=== PATIENT | female | born 1970 | race Caucasian/White ===

== ENCOUNTER 2021-09-16 09:01 | Outpatient (CLI) | payer BC, SELFPAY ==
[2021-09-16 18:35] LABS: Hematocrit 41.3 % (37.0-47.0); Hemoglobin 13.4 g/dL (12.0-15.0); Mean Corpuscular HGB Conc 32.4 g/dl (32-36); Mean Corpuscular Hemoglobin 28.9 pg (26-34); Platelet Count Result 262 k/mm3 (150-375); Red Blood Count 4.64 M/mm3 (4.2-5.4); Red Cell Distribution Width 13.5 % (11.5-14.5); White Blood Count 6.6 K/mm3 (4.5-10.0)
[2021-09-16 19:08] LABS: Alanine Aminotransferase 21 U/L (4-35); Albumin Level 4.7 g/dL (3.5-5.1); Alkaline Phosphatase 113 U/L (38-126); Anion Gap 9 mmol/L (8-16); Aspartate Amino Transferase 30 U/L (14-36); Bilirubin,Total 0.5 mg/dL (0.2-1.3); Blood Urea Nitrogen 8 mg/dL (7-17); Calcium 9.5 mg/dL (8.4-10.2); Carbon Dioxide 21 mmol/L (22-30); Chloride 107 mmol/L (98-107); Cholesterol 141 mg/dL (0-200); Estimated Glomerular Filt Rate > 60; Glucose 101 mg/dL (65-110); HDL Direct 45 mg/dL; Sodium 137 mmol/L (137-145); Triglycerides 118 mg/dL (<150)
[2021-09-16 19:19] LABS: LDL Cholesterol Direct 68 mg/dL
[2021-09-16 19:25] LABS: Vitamin D 25 Hydroxy 28.5 ng/mL
[2021-09-16 19:39] LABS: Thyroid Stimulating Hormone Reflex 0.752 uIU/mL (0.465-4.68)
[2021-09-21 07:35] LABS: LH 30.9 mIU/mL (***); Progesterone 0.4 ng/mL (***)
[2021-09-21 13:06] LABS: Testosterone Free 1.9 pg/mL (0.1-6.4); Testosterone Total 22 ng/dL (2-45)
== END 2021-09-16 09:02 | disposition home or self-care (01) ==
LOC: ANHBWCLAB 09:06
PROVIDERS: PCP Family Medicine; Visit Provider Family Medicine
DX: R68.82 Decreased libido (principal); E04.9 Nontoxic goiter, unspecified; K21.9 Gastro-esophageal reflux disease without esophagitis; Z98.84 Bariatric surgery status; Z00.00 Encounter for general adult medical examination without abnormal findings
CPT/HCPCS: 36415; 80053; 80061; 82306; 82607; 82672; 82746; 83001; 83002; 84144; 84402; 84403; 84443; 85027

== ENCOUNTER → 2021-10-07 08:27 | Outpatient (CLI) | payer OTHER, SELFPAY ==
--- NOTE | ~2021-10-07 | CT_ITS ---
EXAMINATION: CT brain wo con DATE: 10/07/2021 08:44 INDICATION: Headache TECHNIQUE: Computed tomography (CT) of the head was performed without intravenous contrast. Sagittal and coronal reconstructions were performed. The mA was adjusted according to patient size. Iterative reconstruction technique was employed. The dose-length product was 599.57 mGy-cm. COMPARISON: None FINDINGS: No acute intracranial hemorrhage, acute infarction or abnormal extra axial fluid collection. Ventricl es are normal and symmetric. Empty sella with flattened pituitary measuring 2 mm in craniocaudal th ickness along the floor of the dilated CSF sella which measures 1.6 x 1.6 cm in diameter. No mass/mas s effect. The orbits, paranasal sinuses and mastoid air cells are normal. IMPRESSION: 1. No acute intracranial process. 2. Empty sella which can be associated with idiopathic intracranial hypertension. Reviewed, dictated and finalized at location B. IO OPERATIONS ENGINEER IN CHARGE IMPRESSION: 1. No acute intracranial process. 2. Empty sella which can be associated with idiopathic intracranial hypertens ion.
== END ==
PROVIDERS: PCP Family Medicine; Visit Provider Family Medicine
DX: R51.9 Headache, unspecified (principal)
CPT/HCPCS: 70450

== ENCOUNTER 2022-09-20 07:35 | Outpatient (CLI) | payer OTHER, SELFPAY ==
[2022-09-20 19:10] LABS: Hematocrit 41.4 % (37.0-47.0); Hemoglobin 13.3 g/dL (12.0-15.0); Mean Corpuscular HGB Conc 32.1 g/dl (32-36); Mean Corpuscular Hemoglobin 28.8 pg (26-34); Mean Corpuscular Volume 89.6 fl (80-100); Mean Platelet Volume 11.4 fl (7.4-10.4); Platelet Count Result 246 k/mm3 (150-375); Red Blood Count 4.62 M/mm3 (4.2-5.4); Red Cell Distribution Width 13.3 % (11.5-14.5); White Blood Count 6.5 K/mm3 (4.5-10.0)
[2022-09-20 19:24] LABS: Hemoglobin A1C 6.2 % (<5.7)
[2022-09-20 19:28] LABS: Alanine Aminotransferase 30 U/L (6-35); Albumin Level 4.8 g/dL (3.5-5.1); Alkaline Phosphatase 121 U/L (38-126); Anion Gap 9 mmol/L (8-16); Aspartate Amino Transferase 56 U/L (14-36); Bilirubin,Total 0.5 mg/dL (0.2-1.3); Blood Urea Nitrogen 9 mg/dL (7-17); Calcium 9.1 mg/dL (8.4-10.2); Carbon Dioxide 24 mmol/L (22-30); Chloride 107 mmol/L (98-107); Cholesterol 183 mg/dL (0-200); Estimated Glomerular Filt Rate > 60; Glucose 91 mg/dL (65-110); HDL Direct 47 mg/dL; Sodium 140 mmol/L (137-145); Triglycerides 153 mg/dL (<150)
[2022-09-20 19:29] LABS: Vitamin D 25 Hydroxy 30.6 ng/mL
[2022-09-20 19:40] LABS: LDL Cholesterol Direct 87 mg/dL
== END 2022-09-20 07:36 | disposition home or self-care (01) ==
PROVIDERS: PCP Family Medicine; Visit Provider Family Medicine
DX: E55.9 Vitamin D deficiency, unspecified (principal); G43.909 Migraine, unspecified, not intractable, without status migrainosus; F41.9 Anxiety disorder, unspecified; B00.1 Herpesviral vesicular dermatitis; E23.6 Other disorders of pituitary gland; H53.8 Other visual disturbances; F52.6 Dyspareunia not due to a substance or known physiological condition; R68.82 Decreased libido; E04.9 Nontoxic goiter, unspecified; Z98.84 Bariatric surgery status; R73.09 Other abnormal glucose
CPT/HCPCS: 36415; 80053; 80061; 82306; 82607; 83036; 85027

== ENCOUNTER 2022-10-03 13:30 | Emergency (ER) | payer OTHER, SELFPAY ==
--- NOTE | ~2022-10-03 | XR_ITS ---
EXAMINATION: XR chest 2V DATE: 10/03/2022 13:48 INDICATION: Shortness of breath. Cough. TECHNIQUE: Frontal and lateral views of the chest were obtained. COMPARISON: None. FINDINGS: There is no pneumonia, pleural effusion, or pneumothorax. The heart size is normal. Surgica l clips in the right upper quadrant are likely from cholecystectomy. IMPRESSION: 1. No acute cardiopulmonary disease. Reviewed, dictated and finalized at location A. [facility]
[2022-10-03 13:32] VITALS: BP 121/87; PULSE 111; RESP 22; TEMP 36.2; O2SAT 99
[2022-10-03 14:38] LABS: Influenza A QL RT-PCR Negative (Negative); Influenza B QL RT-PCR Negative (Negative); SARS-CoV-2 RNA PCR Negative
--- NOTE | 2022-10-03 14:41 | ED.URI ---
HPI - URI/Sore Throat General Chief Complaint: Upper Respiratory Infection Stated Complaint: upper resp infection Time Seen by Provider: 10/03/22 13:48 History of Present Illness HPI Narrative: 52-year-old female presents to the emergency room for gradual onset of a productive cough, headache, shortness of breath and difficulty breathing. Patient has been taking Mucinex DM and Tylenol with little relief of symptoms. Denies fever. Patient states that she is experiencing difficulty taking a deep satisfying breath. No history of asthma or COPD. Does not smoke. Patient also endorses right ear pain. Related Data Allergies Allergy/AdvReac Type Severity Reaction Status Date / Time dill oil Allergy Unknown Verified 09/20/22 07:17 Review of Systems Review of Systems: CONSTITUTIONAL: Denies fever, chills, or sweats. EYES: Denies visual changes, redness, or discharge. ENT: Reports sinus congestion CARDIOVASCULAR: Denies chest pain, palpitations, or edema. RESPIRATORY: Reports cough or dyspnea. GASTROINTESTINAL: Denies abdominal pain, nausea, vomiting, or diarrhea. GENITOURINARY: Denies dysuria or hematuria. SKIN: Denies rash or itching. MUSCULOSKELETAL: Denies back pain, joint pain, or myalgia. NEUROLOGIC: Denies headache, numbness, dizziness, or weakness. PSYCHIATRIC: Denies anxiety or depression. [facility] Past Medical History Medical History (Updated 10/03/22 @ 16:07 by Efrain Mcguire APRN) GERD (gastroesophageal reflux disease) Goiter Surgical History Surgical History (System 12/09/21 @ 16:12 by Laura Montes) H/O gastric bypass H/O tubal ligation H/O: hysterectomy History of cholecystectomy Family History Family History Father Alcohol abuse Asthma Diabetes mellitus Hypertension Mother Diabetes mellitus Hypertension Other Thyroid disorder Grandparent Hypertension Cerebrovascular accident Grandparent Alcohol abuse Hypertension Heart problem Social History Social History (Updated 09/20/22 @ 07:19 by Paloma Hanks MA) Smoking packs per day: 1.5 Smoking cigarettes per day: 30.0 Years smoked: 24 Smoking pack-years: 36.00 Smoking status: Former smoker Alcohol intake: current Substance use: never Lack of Transportation: No Lack of Food: Never True Current Housing: I Have Housing Concerned About Future Housing: No Difficulty Paying Gas/Electric Bills: No Difficulty Paying for Meds: No Currently Unemployed: No Education: Associate Degree Difficulty w/ Childcare or Family Care: No Exam Narrative: GENERAL: Ill-appearing, well-nourished, no physical limitations HEAD: Normocephalic, atraumatic. EYES: Conjunctivae normal, PERRLA and EOMI. ENT: External nose normal, Nares clear, no rhinorrhea or epistaxis. Mucous membranes moist. Oropharynx without tonsillar hypertrophy exudate or other lesions. External ears normal, bilateral TMs normal bilaterally. Clear effusion with bulging right TM NECK: Supple. No adenopathy or masses. CHEST: Clear to auscultation. No respiratory distress. No wheezes rales or rhonchi. HEART: Regular rate and rhythm. No murmur heard. Normal peripheral pulses. EXTREMITIES: Normal range of motion. No edema. No clubbing or cyanosis SKIN: Warm, dry, no rash. No noted wounds NEURO: No focal deficits. Alert and oriented x3. MAEW. CN's II-XI intact bilaterally, normal gait PSYCH: Cooperative. Normal mood and affect. Course Vital Signs Vital signs: Vital Signs Temperature 36.2 C L 10/03/22 13:32 Pulse Rate 111 H 10/03/22 13:32 Respiratory Rate 22 H 10/03/22 13:32 Blood Pressure 121/87 10/03/22 13:32 Pulse Oximetry 99 10/03/22 13:32 Oxygen Delivery Room Air 10/03/22 13:32 Temperature 36.2 C L 10/03/22 13:32 Pulse Rate 111 H 10/03/22 13:32 Respiratory Rate 20 10/03/22 15:32 Blood Pressure 121/87 10/03/22 13:32 Pulse Oximetry 99 10/03/22 13:
[2022-10-03 15:18] VITALS: RESP 20
[2022-10-03] MEDS: IPRATROPIUM BR 0.02% INH SOLN 0.5 MG/2.5 ML VIAL INHALATION (15:18)
[2022-10-03] MEDS: ALBUTEROL SULFATE NEB 2.5 MG/3 ML INH INHALATION (15:18)
[2022-10-03 15:32] VITALS: RESP 20
== END 2022-10-03 16:10 | disposition home or self-care (01) ==
PROVIDERS: Emergency Provider Nurse Practitioner Family; PCP Family Medicine
DX: J06.9 Acute upper respiratory infection, unspecified (principal); Z20.822 Contact with and (suspected) exposure to COVID-19; K21.9 Gastro-esophageal reflux disease without esophagitis; Z95.1 Presence of aortocoronary bypass graft; Z90.710 Acquired absence of both cervix and uterus; Z87.891 Personal history of nicotine dependence; Z79.85 Long-term (current) use of injectable non-insulin antidiabetic drugs
CPT/HCPCS: 71046; 87636; 94640; 96372; 99283; J1100

== ENCOUNTER 2022-11-30 16:29 | Emergency (ER) | payer OTHER, SELFPAY ==
[2022-11-30 16:43] VITALS: BP 156/95; PULSE 85; RESP 20; TEMP 36.8; O2SAT 100
--- NOTE | 2022-11-30 17:10 | ED.LOWEXIN ---
HPI - Extremity Injury (Lower) General Chief Complaint: Extremity Injury, Lower Stated Complaint: Low Back Pain Source: patient and RN notes reviewed History of Present Illness HPI Narrative: 52-year-old female presents to urgent care with complaints of right buttock pain that radiates around to right groin. Patient states this has been going on for the last week. Patient states she has been sleeping in a recliner ever since this past winter but when she slept in a bed recently her pain was aggravated. Patient denies any numbness or tingling. Denies any saddle anesthesia, incontinence of urine or stool, fevers, or chills. Patient has taken ibuprofen with minimal relief. Some parts of this dictation were generated by voice recognition software and may contain typographical and/or grammatical inaccuracies. Related Data Allergies Allergy/AdvReac Type Severity Reaction Status Date / Time dill oil Allergy Unknown Verified 09/20/22 07:17 Review of Systems Review of Systems: CONSTITUTIONAL: Denies fever, chills, or sweats. EYES: Denies visual changes, redness, or discharge. ENT: Denies otalgia and sore throat CARDIOVASCULAR: Denies chest pain, palpitations, or edema. RESPIRATORY: Denies cough or dyspnea. GASTROINTESTINAL: Denies abdominal pain, nausea, vomiting, or diarrhea. GENITOURINARY: Denies dysuria or hematuria. SKIN: Denies rash or itching. MUSCULOSKELETAL: Right buttock pain that radiates to right groin NEUROLOGIC: Denies headache, numbness, or weakness. [facility] Past Medical History Medical History (Updated 11/30/22 @ 17:35 by Leah Arzola APRN) GERD (gastroesophageal reflux disease) Goiter Surgical History Surgical History (System 12/09/21 @ 16:12 by Laura Montes) H/O gastric bypass H/O tubal ligation H/O: hysterectomy History of cholecystectomy Family History Family History Father Alcohol abuse Asthma Diabetes mellitus Hypertension Mother Diabetes mellitus Hypertension Other Thyroid disorder Grandparent Hypertension Cerebrovascular accident Grandparent Alcohol abuse Hypertension Heart problem Social History Social History (Updated 09/20/22 @ 07:19 by Paloma Hanks MA) Smoking packs per day: 1.5 Smoking cigarettes per day: 30.0 Years smoked: 24 Smoking pack-years: 36.00 Smoking status: Former smoker Alcohol intake: current Substance use: never Lack of Transportation: No Lack of Food: Never True Current Housing: I Have Housing Concerned About Future Housing: No Difficulty Paying Gas/Electric Bills: No Difficulty Paying for Meds: No Currently Unemployed: No Education: Associate Degree Difficulty w/ Childcare or Family Care: No Living arrangements: with family Comments At the time of my signature, I reviewed and agree with the nursing past medical, surgical, social, and family history. There is no relevant family history pertinent to the patient complaint. Exam Narrative: GENERAL: This is a well-nourished, well-developed patient, in no apparent distress. HEAD: normocephalic, atraumatic. EYES: PERRL. Sclera clear/white. Vision is grossly intact. EARS: External ears normal, auditory canals clear and without drainage, TMs normal without perforation. Hearing grossly intact. NOSE: External nose normal with no obvious nasal discharge, nares without redness, no rhinorrhea. THROAT: Mucous membranes moist, posterior pharynx clear. NECK: Neck supple, non-tender without lymphadenopathy, masses or thyromegaly. CARDIOVASCULAR: Regular rate and rhythm without murmurs, gallops, or rubs. RESPIRATORY: Clear to auscultation. Breath sounds equal bilaterally. No wheezes, rales, or rhonchi. GASTROINTESTINAL: Abdomen soft, non-tender, nondistended. Bowel sounds are active. No hepato-splenomegaly, or palpable masses. No guarding. SKIN: warm, intact with no suspicious lesions or rash, good texture and t
== END 2022-11-30 17:40 | disposition home or self-care (01) ==
PROVIDERS: Emergency Provider Nurse Practitioner Family; PCP Family Medicine
DX: M54.31 Sciatica, right side (principal); Z98.84 Bariatric surgery status; Z87.891 Personal history of nicotine dependence; Z79.51 Long term (current) use of inhaled steroids
CPT/HCPCS: 99213; G0463

== ENCOUNTER 2022-12-06 13:59 | Outpatient (CLI) | payer OTHER, SELFPAY ==
[2022-12-06 20:58] LABS: Hepatitis B Surface Antigen Negative (Negative)
[2022-12-06 21:04] LABS: HAV RESULT Negative (Negative); Hepatitis B Core IgM Result Negative (Negative)
[2022-12-06 21:16] LABS: Hepatitis C Virus Antibody Negative (Negative)
[2022-12-06 21:30] LABS: Alanine Aminotransferase 35 U/L (6-35); Albumin Level 4.5 g/dL (3.5-5.1); Alkaline Phosphatase 106 U/L (38-126); Aspartate Amino Transferase 57 U/L (14-36); Bilirubin,Total 0.3 mg/dL (0.2-1.3)
== END 2022-12-06 14:00 | disposition home or self-care (01) ==
LOC: ANHBWCLAB 14:00
PROVIDERS: PCP Family Medicine; Visit Provider Family Medicine
DX: R74.01 Elevation of levels of liver transaminase levels (principal)
CPT/HCPCS: 36415; 80074; 80076

== ENCOUNTER 2022-12-09 08:56 | Outpatient (CLI) | payer OTHER, SELFPAY ==
--- NOTE | ~2022-12-09 | XR_ITS ---
XR hip RT 2V w AP pelvis DATE: 12/09/2022 09:11 INDICATION: Right hip pain TECHNIQUE: AP pelvis. AP and lateral views of right hip. COMPARISON: None FINDINGS: Normal alignment at the pubic symphysis and sacroiliac joints. Hip joint spaces are symmetr ic and well preserved. No pelvic fracture or bone destruction. No fracture, dislocation, avascular ne crosis or bone destruction of the right hip. IMPRESSION: No significant abnormality Reviewed, dictated and finalized at location L. OPERATOR IMPRESSION: No significant abnormality
--- NOTE | ~2022-12-09 | XR_ITS ---
Supine and upright views of the abdomen Clinical history: Abdominal pain Findings: Bowel gas pattern is nonspecific. Moderate to large amount of stool. No evidence for obstru ction or free air. Cholecystectomy clips noted. No abnormal mass lesion or calcification is seen. Oss eous structures are intact. Impression: Moderate to large amount of stool. Correlate for constipation. Reviewed, dictated and finalized at [facility]. DROPPER Impression: Moderate to large amount of stool. Correlate for constipation.
== END 2022-12-09 08:57 | disposition home or self-care (01) ==
PROVIDERS: PCP Family Medicine; Visit Provider Family Medicine
DX: M54.9 Dorsalgia, unspecified (principal); R10.2 Pelvic and perineal pain
CPT/HCPCS: 73502; 74019

== ENCOUNTER 2023-03-24 08:06 | Outpatient (CLI) | payer OTHER, SELFPAY ==
[2023-03-24 19:21] LABS: Alanine Aminotransferase 28 U/L (6-35); Albumin Level 4.8 g/dL (3.5-5.1); Alkaline Phosphatase 89 U/L (38-126); Anion Gap 10 mmol/L (8-16); Aspartate Amino Transferase 85 U/L (14-36); Bilirubin,Total 0.5 mg/dL (0.2-1.3); Blood Urea Nitrogen 5 mg/dL (7-17); Calcium 9.4 mg/dL (8.4-10.2); Carbon Dioxide 26 mmol/L (22-30); Chloride 105 mmol/L (98-107); Cholesterol 173 mg/dL (0-200); Estimated Glomerular Filt Rate > 60; Glucose 66 mg/dL (65-110); HDL Direct 42 mg/dL; Potassium 3.9 mmol/L (3.4-5.0); Sodium 141 mmol/L (137-145); Triglycerides 194 mg/dL (<150)
[2023-03-24 19:33] LABS: LDL Cholesterol Direct 91 mg/dL
[2023-03-24 19:38] LABS: Hematocrit 45.2 % (37.0-47.0); Hemoglobin 13.8 g/dL (12.0-15.0); Mean Corpuscular HGB Conc 30.5 g/dl (32-36); Mean Corpuscular Hemoglobin 28.3 pg (26-34); Mean Corpuscular Volume 92.8 fl (80-100); Mean Platelet Volume 11.8 fl (7.4-10.4); Platelet Count Result 251 k/mm3 (150-375); Red Blood Count 4.87 M/mm3 (4.2-5.4); Red Cell Distribution Width 14.2 % (11.5-14.5); White Blood Count 6.8 K/mm3 (4.5-10.0)
[2023-03-24 19:51] LABS: Thyroid Stimulating Hormone 0.354 uIU/mL (0.465-4.680)
[2023-03-24 20:20] LABS: Vitamin D 25 Hydroxy 38.6 ng/mL
== END 2023-03-24 08:07 | disposition home or self-care (01) ==
PROVIDERS: PCP Family Medicine; Visit Provider Nurse Practitioner Adult Health
DX: E55.9 Vitamin D deficiency, unspecified (principal); E04.9 Nontoxic goiter, unspecified; Z98.84 Bariatric surgery status
CPT/HCPCS: 36415; 80053; 80061; 82306; 82607; 82746; 84443; 85027

== ENCOUNTER 2023-04-19 08:22 | Outpatient (CLI) | payer OTHER, SELFPAY ==
[2023-04-19 20:37] LABS: Appearance Urine Clear (Clear); Bilirubin Urine Negative (Negative); Blood Urine Negative (Negative); Color Urine Yellow (Yellow); Glucose Urine UA Negative (Negative); Ketones Urine Negative (Negative); Leukocyte Esterase Ur Negative LEU/UL (NEGATIVE); Nitrate Urine Negative (Negative); Protein Urine Negative (Negative); Urobilinogen Urine 0.2 mg/dL (<2.0)
[2023-04-19 20:48] LABS: Add Urine Microscopic? NO
[2023-04-19 22:16] LABS: Free T4 Free Thyroxine 1.16 ng/mL (0.78-2.19)
[2023-04-19 22:35] LABS: Folic Acid 13.5 ng/mL (2.76->20)
[2023-04-23 08:14] LABS: Thyroid Peroxidase Antibodies 1 IU/mL (<9)
== END 2023-04-19 08:23 | disposition home or self-care (01) ==
PROVIDERS: PCP Family Medicine; Visit Provider Nurse Practitioner Adult Health
DX: R53.83 Other fatigue (principal); E04.9 Nontoxic goiter, unspecified; R39.9 Unspecified symptoms and signs involving the genitourinary system
CPT/HCPCS: 36415; 81003; 82607; 82746; 84439; 86376

== ENCOUNTER 2023-05-05 08:19 | Outpatient (CLI) | payer OTHER, SELFPAY ==
[2023-05-05 19:19] LABS: Appearance Urine Cloudy (Clear); Bacteria Urine None Seen /hpf; Bilirubin Urine Negative (Negative); Blood Urine Negative (Negative); Calcium Oxalate Crystals Urine Present /hpf; Color Urine Dark Yellow (Yellow); Glucose Urine UA Negative (Negative); Ketones Urine Trace mg/dL (Negative); Leukocyte Esterase Ur Trace LEU/UL (NEGATIVE); Need Manual Microscopic Reviewed; Nitrate Urine Negative (Negative); Non Pathogenic Casts 0-2; Protein Urine Trace mg/dL (Negative); Specific Grav Ur 1.028 (1.001-1.035); Squamous Epithelial Cell Urine Few /hpf (Few); WBC Urine 0-5 /hpf (0-3); pH Urine 6.5 (5.0-9.0)
[2023-05-05 19:23] LABS: Add Urine Microscopic? YES
== END 2023-05-05 08:20 | disposition home or self-care (01) ==
LOC: ANHBWCLAB 08:20
PROVIDERS: PCP Nurse Practitioner Adult Health; Visit Provider Nurse Practitioner Adult Health
DX: R39.9 Unspecified symptoms and signs involving the genitourinary system (principal); M54.9 Dorsalgia, unspecified
CPT/HCPCS: 81001; 87086

== ENCOUNTER 2023-10-06 11:00 | Outpatient (CLI) | payer OTHER, SELFPAY ==
[2023-10-06 18:44] LABS: Hematocrit 43.5 % (37.0-47.0); Hemoglobin 13.8 g/dL (12.0-15.0); Mean Corpuscular HGB Conc 31.7 g/dl (32-36); Mean Corpuscular Hemoglobin 27.5 pg (26-34); Mean Corpuscular Volume 86.7 fl (80-100); Mean Platelet Volume 12.5 fl (7.4-10.4); Platelet Count Result 249 k/mm3 (150-375); Red Blood Count 5.02 M/mm3 (4.2-5.4); Red Cell Distribution Width 13.9 % (11.5-14.5); White Blood Count 6.2 K/mm3 (4.5-10.0)
[2023-10-06 20:31] LABS: Alanine Aminotransferase 24 U/L (6-35); Albumin Level 4.7 g/dL (3.5-5.1); Alkaline Phosphatase 106 U/L (38-126); Anion Gap 10 mmol/L (8-16); Aspartate Amino Transferase 48 U/L (14-36); Bilirubin,Total 0.5 mg/dL (0.2-1.3); Blood Urea Nitrogen 9 mg/dL (7-17); Calcium 9.8 mg/dL (8.4-10.2); Carbon Dioxide 26 mmol/L (22-30); Chloride 104 mmol/L (98-107); Cholesterol 168 mg/dL (0-200); Estimated Glomerular Filt Rate > 60; Glucose 102 mg/dL (65-110); HDL Direct 47 mg/dL; Magnesium 2.3 mg/dL (1.6-2.3); Potassium 4.4 mmol/L (3.4-5.0); Sodium 140 mmol/L (137-145); Triglycerides 125 mg/dL (<150)
[2023-10-06 20:43] LABS: LDL Cholesterol Direct 88 mg/dL
[2023-10-06 21:01] LABS: Thyroid Stimulating Hormone 0.717 uIU/mL (0.465-4.680)
[2023-10-06 21:36] LABS: Folic Acid 10.6 ng/mL (2.76->20)
[2023-10-06 21:58] LABS: Free T4 Free Thyroxine 1.11 ng/mL (0.78-2.19); Vitamin D 25 Hydroxy 20.2 ng/mL
== END 2023-10-06 11:01 | disposition home or self-care (01) ==
LOC: ANHBWCLAB 11:02
PROVIDERS: PCP Nurse Practitioner Adult Health; Visit Provider Nurse Practitioner Adult Health
DX: E55.9 Vitamin D deficiency, unspecified (principal); M79.606 Pain in leg, unspecified; R73.03 Prediabetes; F41.9 Anxiety disorder, unspecified
CPT/HCPCS: 36415; 80053; 80061; 82306; 82607; 82746; 83735; 84439; 84443; 85027

== ENCOUNTER → 2023-10-10 08:33 | Outpatient (CLI) | payer OTHER, SELFPAY ==
--- NOTE | ~2023-10-10 | US_ITS ---
Thyroid ultrasound. Clinical History: Nontoxic goiter Findings: Real-time sonography of the thyroid gland was performed. The right lobe measures 5.6 x 2.1 x 2.2 cm. The left lobe measures 4.8 x 1.6 x 2.1 cm. The isthmus is 3 mm in AP diameter. There is a 1.2 cm spongiform, benign nodule in the right mid to lower pole. There are several additio nal hypoechoic right-sided thyroid nodules, largest measuring 9 mm. There There is a 9 mm hypoechoic solid nodule at the left mid to upper pole with punctate hyperechoic foci within it. Impression: 9 mm TI-RADS 5 nodule in the left thyroid lobe, as above. Given size under 1 cm, follow-up ultrasound in 6 months to one year recommended.. Reviewed, dictated and finalized at [facility]. SIVE PRIMER Impression: 9 mm TI-RADS 5 nodule in the left thyroid lobe, as above. Given size under 1 cm , follow-up ultrasound in 6 months to one year recommended..
== END ==
PROVIDERS: PCP Nurse Practitioner Adult Health; Visit Provider Nurse Practitioner Adult Health
DX: E04.9 Nontoxic goiter, unspecified (principal)
CPT/HCPCS: 76536

== ENCOUNTER 2023-10-19 05:51 | Day surgery (SDC) | payer OTHER, SELFPAY ==
[2023-10-13 09:08] VITALS: BMI 29.0
[2023-10-13 14:10] VITALS: BMI 29.0
[2023-10-19 06:37] VITALS: BMI 28.6
[2023-10-19 06:38] VITALS: BP 142/93; PULSE 72; RESP 16; TEMP 36.5; O2SAT 100
--- NOTE | 2023-10-19 07:10 | PM.HPGS ---
History of Present Illness History of Present Illness Consent: Risks, benefits, and alternatives have been discussed and questions answered. Patient agrees to proceed with procedure. Chief complaint: Neoplasm Screening,gerd Narrative: Purnima Lauren is a 53 year old female referred for both colonoscopy and EGD. Patient desires neoplasia screening. She is reported to have weight loss. She has an unspecified amount of weight loss. Patient has a past medical history of gastric bypass. She states she has some degree of acid reflux on this basis. She is concerned about a sore throat. She has not yet seen an ENT evaluation. Patient has no difficulty swallowing foods. Family is noncontributory. Her bowel habits are normal with no evidence blood. Review of Systems Review of Systems: Review of systems noncontributory. [facility] Past Medical History Medical History (Updated 10/19/23 @ 07:13 by Jean Carlos Dowd MD) GERD (gastroesophageal reflux disease) Goiter Surgical History Surgical History (System 12/09/21 @ 16:12 by Laura Montes) H/O gastric bypass H/O tubal ligation H/O: hysterectomy History of cholecystectomy Family History Family History Father Alcohol abuse Asthma Diabetes mellitus Hypertension Mother Diabetes mellitus Hypertension Other Thyroid disorder Grandparent Hypertension Cerebrovascular accident Grandparent Alcohol abuse Hypertension Heart problem Social History Social History (Updated 09/20/22 @ 07:19 by Paloma Hanks MA) Smoking packs per day: 1.5 Smoking cigarettes per day: 30.0 Years smoked: 24 Smoking pack-years: 36.00 Smoking status: Former smoker Tobacco type: cigarettes Alcohol intake: never Substance use: never Substance use type: does not use Lack of Transportation: No Lack of Food: Never True Current Housing: I Have Housing Concerned About Future Housing: No Difficulty Paying Gas/Electric Bills: No Difficulty Paying for Meds: No Currently Unemployed: No Education: Associate Degree Difficulty w/ Childcare or Family Care: No Living arrangements: with family Spiritual care concerns: No Meds Home Medications and Allergies Home Medications Medication Instructions Recorded Confirmed Type polyethylene glycol 3350 17 17 g PO DAILY #510 grams 12/09/22 10/19/23 Rx gram/dose oral powder (Miralax) dicyclomine 20 mg tablet See Rx Instructions .Route 03/24/23 10/19/23 Rx .COMPLEX #120 tabs lisdexamfetamine 30 mg capsule 30 mg PO DAILY #30 caps 09/29/23 10/19/23 Rx (Vyvanse) cholecalciferol (vitamin D3) 125 125 mcg PO DAILY #30 caps 10/07/23 10/19/23 Rx mcg (5,000 unit) capsule mecobalamin (vitamin B12) 1,000 1,000 mcg sublingual DAILY #90 tabs 10/10/23 10/19/23 Rx mcg disintegrating tablet,sublingual ropinirole 0.25 mg tablet 0.25 mg PO BID 10/13/23 10/19/23 History Allergies Allergy/AdvReac Type Severity Reaction Status Date / Time dill oil Allergy Unknown Verified 10/19/23 06:37 Vital Signs Vital Signs - 24 hr 10/19/23 06:38 Temperature 97.7 F Pulse Rate 72 Respiratory Rate 16 Blood Pressure 142/93 H Pulse Oximetry 100 Oxygen Delivery Room Air Exam Narrative: Physical exam reveals patient to be alert. Vital signs stable. HEENT exam is unremarkable. Patient is anicteric. Lungs are clear to auscultation and percussion. Heart is without murmur or extra sounds. Abdomen bowel sounds are present soft nontender with no organomegaly. Digital external rectal exam normal. Assessment and Plan Assessment and plan (1) Obesity (BMI 30.0-34.9): Code(s): E66.9 - Obesity, unspecified Status: Acute Assessment and Plan: Is a history gastric bypass apparently is losing some weight. For this reason desires GI evaluations. (2) Colon cancer screening: Code(s): Z12.11 - Encounter for scr
[2023-10-19] MEDS: LACTATED RINGERS 1,000 ML 150 ML IV CONT (07:22)
--- NOTE | 2023-10-19 07:35 | WPDANESEPPF ---
Anes - Initial Pre Proc Eval Procedure: Operation Date: 10/19/23 08:00 Proposed Procedures p Esophagogastroduodenoscopy - Jean Carlos Dowd MD s Screening Colonoscopy - Jean Carlos Dowd MD Date/Time: 10/19/23 07:35 Surgeon: Jean Carlos Dowd MD Pre Op Diagnosis: Neoplasm Screening,gerd Patient Data Age: 53 Gender: F Height: 1.6 m Weight: 73.4 kg Last Vital Signs Temp 36.5 C 10/19/23 06:38 Pulse 72 10/19/23 06:38 Resp 16 10/19/23 06:38 BP 142/93 H 10/19/23 06:38 Pulse Ox 100 10/19/23 06:38 O2 Del Method Room Air 10/19/23 06:38 Allergies Allergy/AdvReac Type Severity Reaction Status Date / Time dill oil Allergy Unknown Verified 10/19/23 06:37 Home Medications Medication Instructions Recorded Confirmed Type polyethylene glycol 3350 17 17 g PO DAILY #510 grams 12/09/22 10/19/23 Rx gram/dose oral powder (Miralax) dicyclomine 20 mg tablet See Rx Instructions .Route 03/24/23 10/19/23 Rx .COMPLEX #120 tabs lisdexamfetamine 30 mg capsule 30 mg PO DAILY #30 caps 09/29/23 10/19/23 Rx (Vyvanse) cholecalciferol (vitamin D3) 125 125 mcg PO DAILY #30 caps 10/07/23 10/19/23 Rx mcg (5,000 unit) capsule mecobalamin (vitamin B12) 1,000 1,000 mcg sublingual DAILY #90 tabs 10/10/23 10/19/23 Rx mcg disintegrating tablet,sublingual ropinirole 0.25 mg tablet 0.25 mg PO BID 10/13/23 10/19/23 History Patient hx anesthesia problems: none Family hx anesthesia problems: none Results Review: All pre-operative results and documents have been reviewed as part of the pre-operative evaluation. [facility] Past Medical History Medical History GERD (gastroesophageal reflux disease) Goiter Surgical History Surgical History H/O gastric bypass H/O tubal ligation H/O: hysterectomy History of cholecystectomy Family History Family History Father Alcohol abuse Asthma Diabetes mellitus Hypertension Mother Diabetes mellitus Hypertension Other Thyroid disorder Grandparent Hypertension Cerebrovascular accident Grandparent Alcohol abuse Hypertension Heart problem Social History Social History Smoking packs per day: 1.5 Smoking cigarettes per day: 30.0 Years smoked: 24 Smoking pack-years: 36.00 Smoking status: Former smoker Tobacco type: cigarettes Alcohol intake: never Substance use: never Substance use type: does not use Lack of Transportation: No Lack of Food: Never True Current Housing: I Have Housing Concerned About Future Housing: No Difficulty Paying Gas/Electric Bills: No Difficulty Paying for Meds: No Currently Unemployed: No Education: Associate Degree Difficulty w/ Childcare or Family Care: No Living arrangements: with family Spiritual care concerns: No Anes - Eval Final PreProcedure Day of Procedure 10/19/23 07:35 Patient weight: overweight Heart: regular rate and rhythm Lungs: clear to auscultation Airway: Mallampati scale class II Neurological: alert and oriented Last oral intake: >/= 8 hours ASA classification: II Emergent: no Anesthetic plan: proceed Anesthesia type and monitoring: general GIVS and standard monitoring Results Review: All pre-operative results and documents have been reviewed as part of the pre-operative evaluation. Informed Consent: The patient's anesthetic plan and its attendant risks and benefits were discussed with the patient/family/POA. Questions were solicited and answers provided to the satisfaction of the patient/family/POA.
[2023-10-19 08:16] VITALS: BP 110/63; PULSE 94; RESP 16; O2SAT 100
[2023-10-19 08:26] VITALS: BP 107/63; PULSE 76; RESP 20; O2SAT 100
--- NOTE | 2023-10-19 08:31 | WPDANESPN ---
Anes - Prog Note Post-Op Date/Time: 10/19/23 08:31 Cardiovascular status: normal Respiratory status: normal Airway patency: baseline Mental status: baseline Post-Op hydration status: normal Vital Signs: Last Vital Signs Temp 36.5 C 10/19/23 06:38 Pulse 94 10/19/23 08:16 Resp 16 10/19/23 08:16 BP 110/63 10/19/23 08:16 Pulse Ox 100 10/19/23 08:16 O2 Del Method Room Air 10/19/23 08:16 Pain Score (VAS): 0 I/O: Intake & Output 10/18/23 10/19/23 10/19/23 23:59 07:59 15:59 Intake Total 600 Balance 600 Patient Feedback: Patient satisfied with anesthetic care.
[2023-10-19 08:36] VITALS: BP 153/87; PULSE 73; RESP 20; O2SAT 100
== END 2023-10-19 08:43 | disposition home or self-care (01) ==
PROVIDERS: PCP Family Medicine; Visit Provider Internal Medicine Gastroenterology
PROC: 0DJ08ZZ Inspection of Upper Intestinal Tract, Via Natural or Artificial Opening Endoscopic (ICD-10-PCS; CPT 43235; principal; 2023-10-19 08:00)
PROC: 0DJD8ZZ Inspection of Lower Intestinal Tract, Via Natural or Artificial Opening Endoscopic (ICD-10-PCS; CPT 45378; 2023-10-19 08:00)
DX: Z12.11 Encounter for screening for malignant neoplasm of colon (principal); K64.8 Other hemorrhoids; R63.4 Abnormal weight loss; K21.9 Gastro-esophageal reflux disease without esophagitis; K31.89 Other diseases of stomach and duodenum
CPT/HCPCS: 45378; 43239

== ENCOUNTER → 2023-11-04 12:14 | Outpatient (CLI) | payer OTHER, SELFPAY ==
--- NOTE | ~2023-11-04 | XR_ITS ---
Lumbosacral Spine: AP and lateral views Clinical History: Pain Findings: The normal lordotic curve is maintained. The vertebral bodies and posterior elements are i ntact. The intervertebral disc spaces are preserved. The sacroiliac joints are normally outlined. Impression: No significant abnormality. Reviewed, dictated and finalized at [facility]. PROFILER Impression: No significant abnormality.
--- NOTE | ~2023-11-04 | XR_ITS ---
AP and lateral views of the left hip Clinical history: Pain Findings: No acute fracture or dislocation is seen. Osseous alignment is anatomic. Bilateral hip and SI joint spaces are preserved. Soft tissues are unremarkable. Impression: No significant abnormality is seen. Reviewed, dictated and finalized at location . R CONTRACT ANALYST Impression: No significant abnormality is seen.
== END ==
PROVIDERS: PCP Nurse Practitioner Adult Health; Visit Provider Nurse Practitioner Adult Health
DX: M25.552 Pain in left hip (principal); M54.9 Dorsalgia, unspecified
CPT/HCPCS: 72100; 73502

== ENCOUNTER 2023-11-09 13:07 | Outpatient (CLI) | payer OTHER, SELFPAY ==
--- NOTE | ~2023-11-09 | XR_ITS ---
EXAMINATION: XR abdomen/kub 1V DATE: 11/09/2023 13:17 INDICATION: Left mid abdominal pain. TECHNIQUE: A supine view of the abdomen on 2 radiographs was obtained. COMPARISON: Abdomen radiographs 12/09/2022 FINDINGS: There are no dilated loops of bowel. There is a moderate volume of stool in the colon. Surg ical clips in the right upper quadrant are likely from cholecystectomy. IMPRESSION: 1. Nonobstructive bowel gas pattern. Reviewed, dictated and finalized at location E. ATION COMMISSIONER
[2023-11-09 19:06] LABS: Appearance Urine Clear (Clear); Bilirubin Urine Negative (Negative); Blood Urine Negative (Negative); Color Urine Yellow (Yellow); Glucose Urine UA Negative (Negative); Ketones Urine Trace mg/dL (Negative); Leukocyte Esterase Ur Negative LEU/UL (NEGATIVE); Nitrate Urine Negative (Negative); Protein Urine Negative (Negative); Specific Grav Ur 1.028 (1.001-1.035); pH Urine 5.5 (5.0-9.0)
[2023-11-09 19:13] LABS: Add Urine Microscopic? NO
== END 2023-11-09 13:08 | disposition home or self-care (01) ==
LOC: ANHBWCLAB 13:09
PROVIDERS: PCP Nurse Practitioner Adult Health; Visit Provider Nurse Practitioner Adult Health
DX: R39.9 Unspecified symptoms and signs involving the genitourinary system (principal)
CPT/HCPCS: 74018; 81003

== ENCOUNTER 2024-01-25 08:48 | Outpatient (RCR) | payer OTHER, SELFPAY | END 2024-04-24 23:59 | disposition home or self-care (01) | LOC: ANHBWCAUD 08:48 | PROVIDERS: PCP Nurse Practitioner Adult Health; Visit Provider Nurse Practitioner Adult Health | DX: H91.90 Unspecified hearing loss, unspecified ear (principal) | CPT/HCPCS: 92552; 92556; 92567 ==

== ENCOUNTER 2024-02-21 09:00 | Outpatient (CLI) | payer OTHER, SELFPAY ==
[2024-02-21 19:52] LABS: Thyroid Stimulating Hormone Reflex 0.585 uIU/mL (0.465-4.68)
== END 2024-02-21 09:01 | disposition home or self-care (01) ==
LOC: ANHGOSHLAB 09:01
PROVIDERS: PCP Nurse Practitioner Adult Health; Visit Provider Otolaryngology
DX: E04.0 Nontoxic diffuse goiter (principal); K21.9 Gastro-esophageal reflux disease without esophagitis
CPT/HCPCS: 36415; 84443

== ENCOUNTER 2024-02-29 06:55 | Outpatient (CLI) | payer OTHER, SELFPAY ==
--- NOTE | ~2024-02-29 | CT_ITS ---
EXAMINATION: CTA brain DATE: 02/29/2024 07:25 INDICATION: Pulsatile tinnitus. TECHNIQUE: Computed tomographic angiography (CTA) of the head was performed without and with 100 mL O mnipaque-350 intravenous contrast. Automated exposure control and iterative reconstruction technique were employed. The dose-length product was 1014.05 mGy-cm. Maximum intensity projection 3D reconstru ctions were created. Volume-rendered 3D reconstructions of the intracranial arteries were created by the technologist on a separate workstation. COMPARISON: Head CT 10/07/2021 FINDINGS: There is no intracranial hemorrhage, acute infarction, or abnormal intracranial mass lesion . There is an empty sella. The ventricles are normal in size. There is mild mucosal thickening in the paranasal sinuses. The inner ears and tympanic cavities are normal. The mastoid air cells are normal . The orbits are normal. Left vertebral artery is dominant. There is no significant stenosis of basil ar artery or the posterior cerebral arteries. There is no significant stenosis of the intracranial in ternal carotid arteries or anterior or middle cerebral arteries. Anterior communicating artery is nor mal. Left posterior communicating artery is normal. A right posterior communicating artery is not josias ntified. There is no aneurysm. IMPRESSION: 1. No aneurysm or significant intracranial arterial stenosis. Reviewed, dictated and finalized at location A.
== END 2024-02-29 06:56 | disposition home or self-care (01) ==
PROVIDERS: PCP Nurse Practitioner Adult Health; Visit Provider Otolaryngology
DX: H93.A9 Pulsatile tinnitus, unspecified ear (principal); E07.9 Disorder of thyroid, unspecified; E04.0 Nontoxic diffuse goiter; K21.9 Gastro-esophageal reflux disease without esophagitis
CPT/HCPCS: 70496; Q9967

== ENCOUNTER 2024-04-23 08:22 | Outpatient (CLI) | payer OTHER, SELFPAY ==
--- NOTE | ~2024-04-23 | XR_ITS ---
EXAMINATION: XR chest 2V 04/23/2024 08:33 INDICATION: Cough PROCEDURE: 2 view chest COMPARISON: 10/03/2022 FINDINGS: The lungs are clear. The cardiomediastinal silhouette is within normal limits. There are no pleural effusions. There is no pneumothorax suspected. IMPRESSION: 1: NO ACUTE CARDIOPULMONARY DISEASE. Reviewed, dictated and finalized at location B.
== END 2024-04-23 08:23 | disposition home or self-care (01) ==
LOC: ANHBWCIMG 08:23
PROVIDERS: PCP Nurse Practitioner Adult Health; Visit Provider Nurse Practitioner Adult Health
DX: R05.9 Cough, unspecified (principal)
CPT/HCPCS: 71046

== ENCOUNTER 2024-05-09 09:20 | Outpatient (CLI) | payer OTHER, SELFPAY ==
--- NOTE | ~2024-05-09 | XR_ITS ---
Supine and upright views of the abdomen Clinical history: Abdominal pain COMPARISON: 11/09/2023 Findings: Bowel gas pattern is nonspecific. No evidence for obstruction or free air. Cholecystectomy clips. No abnormal mass lesion or calcification is seen. Osseous structures are intact. Impression: No significant abnormality is seen. Reviewed, dictated and finalized at [facility]. Impression: No significant abnormality is seen.
[2024-05-09 10:05] LABS: Alanine Aminotransferase 25 U/L (6-35); Albumin Level 4.8 g/dL (3.5-5.1); Alkaline Phosphatase 99 U/L (38-126); Aspartate Amino Transferase 33 U/L (14-36); Bilirubin,Total 0.5 mg/dL (0.2-1.3)
== END 2024-05-09 09:21 | disposition home or self-care (01) ==
LOC: ANHLAB 09:23
PROVIDERS: PCP Nurse Practitioner Adult Health; Visit Provider Nurse Practitioner
DX: R10.9 Unspecified abdominal pain (principal); R19.5 Other fecal abnormalities
CPT/HCPCS: 36415; 74018; 80076

== ENCOUNTER 2024-06-06 08:05 | Outpatient (CLI) | payer OTHER, SELFPAY ==
--- NOTE | ~2024-06-06 | XR_ITS ---
EXAMINATION: XR UGIAC w small bowel DATE: 06/06/2024 11:49 INDICATION: Jejunal intussusception. Chest pain and dysphagia. TECHNIQUE: The patient drank thick barium, gas-producing crystals, and thin barium. Conventional supi ne abdomen radiographs and fluoroscopic spot radiographs of the esophagus, stomach, and proximal smal l bowel were obtained. Additional overhead radiographs were obtained during the transit through the s mall bowel. Spot fluoroscopic images of the small bowel were obtained upon contrast reaching the cec um. Fluoroscopy exposure time was 1.4 minutes. A total of 111 fluoroscopic images and 8 overhead radi ographs were recorded. Total DAP was 50.835 Gycm^2 COMPARISON: None. FINDINGS: The esophagus is normal without mass or stricture. Esophageal motility is normal. There is no hiatal hernia. Postoperative change of prior gastric bypass procedure. Contrast passes rapidly through the s mall gastric pouch and into the Erin limb with no evident stricture. There was no gastroesophageal re flux with provocative maneuvers. The stomach and otherwise unremarkable. Transit time from the stomach to proximal colon was between 1 hour and 50 minutes and 2 hours and 20 minutes. There is normal caliber and mucosal fold pattern throughout the small bowel. Terminal ileum is normal. Cholecystectomy clips in right upper quadrant.. IMPRESSION: 1. Expected appearance post gastric bypass procedure. Otherwise normal upper GI and small bowel follo w-through. Reviewed, dictated and finalized at location A. IMPRESSION: 1. Expected appearance post gastric bypass procedure. Otherwise normal upper GI and small bowel follow-through.
== END 2024-06-06 08:06 | disposition home or self-care (01) ==
PROVIDERS: PCP Nurse Practitioner Adult Health; Visit Provider Nurse Practitioner
DX: K56.1 Intussusception (principal); K21.9 Gastro-esophageal reflux disease without esophagitis; R07.9 Chest pain, unspecified; R10.11 Right upper quadrant pain; R09.A2 Foreign body sensation, throat; R05.9 Cough, unspecified; Z98.84 Bariatric surgery status
CPT/HCPCS: 74246; 74248

== ENCOUNTER 2025-01-23 07:40 | Outpatient (CLI) | payer OTHER, SELFPAY ==
--- OUTSIDE RECORDS SUMMARY | 2025-01-23 07:45 | XMS_ITS | Clinical Summary ---
Author Organization [facility] Address [address] [place] [address] Care Team Providers Care Wood Lathe Operator Name Role Phone Carlos Canales MD Unavailable [phone] Sagar Joseph MD Primary Care Provider [phone] Source Comments [facility],non-owned Affiliates and Associated Physician Practices is amultiple site organization consisting of ambulatory clinics and hospital sitesin [place], [place], [place] and [place]. This disclosure is being madepursuant to the Care Everywhere program and may not contain all information available regarding this patient. Last updated 18.[facility] Allergies No known active allergies Medications * Be aware that medications may not be up to date on this document. Alwaysverify current medications with the patient. pantoprazole EC (PROTONIX) 20 MG tablet 2 Active prochlorperazine (COMPAZINE) 10 MG tablet 2 Active lisdexamfetamine (Vyvanse) 30 MG capsuleIndications :Attention deficit hyperactivity disorder (ADHD), predominantly inattentive type Take 1 (one) capsule by mouth every morning 30 capsule 3 Active butalbital-acetami nophen-caffeine (Fioricet) 50-325-40 MG tabletIndications: Intractable chronic migraine without aura and without status migrainosus Take 1 (one) tablet by mouth every 4 hours as needed for Headache or Migraine No more than 2 per day. 20 tablet 3 Active nortriptyline (Pamelor) 25 MG capsuleIndications :Intractable chronic migraine without aura and without status migrainosus TAKE 1 CAPSULE BY MOUTH AT BEDTIME 90 capsule 3 3 Active Active Problems No known active problems Social History Tobacco Use Types Packs/Day Years Used Date Smoking Tobacco: Former Cigarettes Q uit: 10/03/2019 Smokeless Tobacco: Never Comments No Sex and Gender Information Value Date Recorded Sex Assigned at Not on file Legal Sex Female 7:52 AM CDT Gender Identity Not on file Sexual Orientation Not on file Last Filed Vital Signs Vital Sign Reading Time Taken Comments Blood Pressure 130/80 11/25/2021 8:02 AM PUTTER IN Pulse 76 11/25/2021 8:02 AM PUTTER IN Temperature 36.7 C (98.1 F) 12/29/2017 9:07 AM CDT Respiratory Rate - - Oxygen Saturation 98% 11/25/2021 8:02 AM PUTTER IN Inhaled Oxygen Concentration - - Weight 83 kg (183 lb) 06/03/2022 9:48 AM CDT Height 160 cm (5' 3 ) 06/03/2022 9:48 AM CDT Body Mass Index 32.42 06/03/2022 9:48 AM CDT Plan of Treatment Health Maintenance Due Date Last Done Comments COLOGUARD (AGES 45-75) - COL ON CA SCREENING 1971 COLON MONITORING 1971 COLONOSCOPY - COLON CA SCREENING 1971 CT COLONOGRAPHY - COLON CA SCREENING 1971 Colorectal Cancer Screening 1971 FIT - COLON CA SCREENING 1971 FLEX SIG - COLON CA SCREENING 1971 LIPID TESTING 1971 PAP SMEAR 1971 HIV SCREENING 1986 HEPATITIS C SCREENING 06/20/1989 DTAP/TDAP/TD VACCINES (1 - Tdap) 1990 HEPATITIS B VACCINE (1 of 3 - 19+ 3-dose series) 1990 SCREENING FOR DIABETES 12/29/2017 07/28/2012 PNEUMOCOCCAL VACCINE 50+ (1 of 1 - PCV) 2021 ZOSTER VACCINE (1 of 2) 2021 MAMMOGRAM 11/13/2023 11/13/2021 COVID-19 VACCINE (2 - 2023-2 5 season) 2024 09/29/2021 DEPRESSION SCREENING 10/03/2024 INFLUENZA VACCINE (Season Ended) 2025 07/24/20 12 HIB VACCINE Aged Out No longer eligi ble based on patient's age to complete this topic HPV VACCINE Aged Out No longer eligi ble based on patient's age to complete this topic MENINGOCOCCAL (Group B) VACC INE SHARED DECISION-MAKING Aged Out No longer eligibl e based on patient's age to complete this topic MENINGOCOCCAL GROUPS A/C/Y/W VACCINE Aged Out No longer eligible b ased on patient's age to complete this topic Procedures Procedure Name Priority Date/Time Associated Diagnosis Comments COMPREHENSIVE METABOLIC PANEL Routine 07/28/2012 4:03 PM CDT from Last 3 Months or Most Recently Relevant to Health Maintenance Results * COMPREHENSIVE METABOLIC PANEL (07/28/2012 4:03 PM CDT) BUN 7 7 - 26 mg/dL [facility] Creatinine 0.6 0.6 - 1.2 mg/dL [facility] eGFR by MDRD > 60 ML/MIN [facility] Comment: Chronic kidney disease: <60 ml/min Kidney failure: <15 ml/min Based on BSA of 1.73m2. Sodium 142 136 - 145 mmol/L [facility] Potassium 4.1 3.5 - 4.5 mmol/L [facility] Chloride 106 98 - 107 mmol/L [facility] CO2 25 22 - 29 mmol/L [facility] Glucose 103 70 - 115 mg/dL [facility] Calcium 9.3 8.4 - 10.2 mg/dL [facility] Protein Total 7.2 6.0 - 8.3 g/dL [facility] Albumin 4.0 3.4 - 5.0 g/dL [facility] Bilirubin Total 0.9 0.2 - 1.2 mg/dL [facility] Alkaline Phosphatase 107 40 - 150 Units/L [facility] ALT 12 0 - 55 Units/L [facility] AST 15 5 - 34 Units/L [facility] Anion Gap 15 8 - 18 [facility] BUN/Creatinine Ratio 11 7 - 23 [facility] Osmolality Calculation 276 270 - 300 mOsm/kg [facility] Albumin/Globulin Ratio 1.3 1.1 - 2.3 [facility] Serum 07/28/2012 4:03 PM CDT 07/28/2012 4:34 PM CDT Narrative [facility] - 07/28/2012 4:34 PM CDT Preferred Lab:->[facility] Juan Luis Grimes MD LAB - CHEMISTRY ORDERABLES F inal Result [facility] [address] [phone] from Last 3 Months or Most Recently Relevant to Health Maintenance [facility] Care Teams Wood Lathe Operator Relationship Specialty Start Date End Date Sagar Joseph MD [address] [place] [phone] PCP - General Family Medicine 11/25/21 Carlos Canales MD [address] [place] [phone] Family Medicine 03/13/18
--- OUTSIDE RECORDS SUMMARY | 2025-01-23 07:45 | XMS_ITS | Clinical Summary ---
Author Organization Debra Morales [facility] Address [address] [place] [address] Phone Care Team Providers Care Clam Bed Worker Name Role Phone Belkis Duggan MD Primary Care Provider Lobo lable Allergies Active Allergy Reactions Criticality Noted Date Comments Dill Oil Hives High 06/09/2016 Medications FOLIC ACID ORAL Take by mouth. Active ferrous sulfate 325 mg (65 mg iron) tabletIndication s:Iron deficiency anemia secondary to inadequate dietary iron intake,History of Erin-en-Y gastric bypass Take 1 Tablet (325 mg) by mouth daily. 90 Tablet 1 03/31/2020 Active cyanocobalamin 1,000 mcg TabletIndication s:Vitamin B12 deficiency (non anemic),History of Erin-en-Y gastric bypass Take 1 Tablet (1,000 mcg) by mouth daily. 90 Tablet 1 03/31/2020 Active pantoprazole (PROTONIX) 40 mg Tablet, Delayed Release (E.C.)Indication s:Gastroesophage al reflux disease Take 1 Tablet (40 mg) by mouth daily. 30 Tablet 1 07/11/2020 Active Active Problems Patient Care Coordination No te Formatting of this note migh t be different from the original. Primary Care: Juan Luis Painter MD Referring Provider: Juan Luis Painter MD No address on file Other: Problem Noted Date Diagnosed Date Vitamin B12 deficiency (non anemic) 05/30/2020 Iron deficiency anemia secon roselyn to inadequate dietary iron intake 05/30/2020 Multiple thyroid nodules 05/30/2020 Vitamin D deficiency 05/30/2020 History of peptic ulcer 05/30/2020 Prediabetes 04/06/2020 Gastroesophageal reflux disease 03/21/2020 History of Erin-en-Y gastric bypass 03/21/2020 Cyst 11/19/2011 Family History Medical History Relation Name Comments Anxiety Brother Depression Brother Healthy Daughter 1 Healthy Daughter 2 Healthy Daughter 3 COPD Father Diabetes Father Heart Disease Father Diabetes Mother Melissa Hypertension Mother Melissa COPD Sister Healthy Son Relation Name Status Comments Brother Alive Daughter 1 Alive Daughter 2 Alive Daughter 3 Alive Father Mother Melissa Alive Sister Alive Son Alive Social History Tobacco Use Types Packs/Day Years Used Date Smoking Tobacco: Former Cigarettes 1 24 1 10/23/1994 - 08/23/2019 Smokeless Tobacco: Never Alcohol Use Standard Drinks/Week Comments Not Currently 0 (1 standard drink = 0.6 oz pur e alcohol) rare Comments No Sex and Gender Information Value Date Recorded Sex Assigned at Not on file Legal Sex Female 6:07 AM SPRINKLER HELPER Gender Identity Not on file Sexual Orientation Not on file Occupation Industry Job Start Date Job End Date Not on file Not on file Not on file Not on file Last Filed Vital Signs Vital Sign Reading Time Taken Comments Blood Pressure 116/81 04/14/2020 10:15 AM CDT Pulse 71 04/14/2020 10:15 AM CDT Temperature 36.8 C (98.2 F) 04/14/2020 8:02 AM CDT Respiratory Rate 14 04/14/2020 9:11 AM CDT Oxygen Saturation 99% 04/14/2020 10:15 AM CDT Inhaled Oxygen Concentration - - Weight 76.7 kg (169 lb) 05/30/2020 8:24 AM CDT Height 160 cm (5' 3 ) 05/30/2020 8:24 AM CDT Body Mass Index 29.94 05/30/2020 8:24 AM CDT Plan of Treatment Health Maintenance Due Date Last Done Comments DTAP/TDAP/TD VACCINES (1 - Tdap) 1990 HEPATITIS B VACCINES (1 of 3 - 19+ 3-dose series) 1990 HPV/Cotest (21-29) 1992 CERVICAL CANCER SCREENING 2001 HPV/Cotest (30-65) 2001 PAP SMEAR 2001 BREAST CANCER SCREENING 11/09/2012 11/09/2011, 11/06 COLORECTAL SCREENING 2016 Colorectal Cancer Screening 2016 FIT-DNA Q 3 years 2016 FIT/FOBT Q 1 year 2016 Flex Sig/CT Colonography Q 5 years 2016 ZOSTER VACCINE (1 of 2) 2021 INFLUENZA VACCINE (#1) 2024 Procedures Procedure Name Priority Date/Time Associated Diagnosis Comments MAMMO DIAGNOSTIC UNI RIGHT W OR WO CAD Routine 11/09/2011 from Last 3 Months or Most Recently Relevant to Health Maintenance Results * (ABNORMAL) MAMMO DIGITAL DIAG UNI RIGHT (11/09/2011) Anatomical Region Laterality Modality Breast Right Other Juan Luis Painter MD MAMMO ORDERABLES Final Result from Last 3 Months or Most Recently Relevant to Health Maintenance Insurance [employer] Care Teams Clam Bed Worker Relationship Specialty Start Date End Date Belkis Duggan MD PCP - General Family Practice 03/14/20
--- OUTSIDE RECORDS SUMMARY | 2025-01-23 07:45 | XMS_ITS | Referral Summary ---
Author Organization [facility] Address [address] [place] [address] Care Team Providers Care Director Fraud Name Role Phone Miscellaneous, Not In File Primary Care Provider Unavailable Allergies Active Allergy Reactions Criticality Noted Date Comments Dill Oil Hives High 06/09/2016 Medications metoclopramide (REGLAN) 5 mg tablet take 1 tablet by oral route 4 times every day 30 minutes before meals and at bedtime 0 0 07/12/20 16 Active Additional Information Patient not taking.Reported on 09/27/2018 cyanocobalamin (VITAMIN B-12) 1,000 mcg/mL injection inject 0.1 milliliter (100MCG) by intramuscular route every month vial 0 07/22/20 11 Active Additional Information Patient not taking.Reported on 10/20/2018 buPROPion XL (WELLBUTRIN XL) 300 mg 24 hr tablet take 1 tablet (300MG) by oral route every day 0 10/11/19 12 Active Additional Information Patient not taking.Reported on 09/27/2018 cyanocobalamin (Vitamin B-12) 1,000 mcg/mL injection inject 0.1 milliliter (100MCG) by intramuscular route every month 2 vial 6 12/15/19 12 Active Additional Information Patient not taking.Reported on 09/27/2018 folic acid (FOLVITE) 1 mg tablet take 1 tablet (1MG) by oral route every day 0 07/22/20 11 Active Additional Information Patient not taking.Reported on 09/27/2018 zolpidem (AMBIEN) 10 mg tablet take 2 Tablet (20MG) by oral route every day 0 10/11/19 12 Active Additional Information Patient not taking.Reported on 09/27/[address] (NexIUM) 40 mg capsule take 1 capsule (40MG) by oral route every day 30 4 07/22/20 11 Active Additional Information Patient not taking.Reported on 09/27/2018 varenicline tartrate (VARENICLINE ORAL) Take by mouth. Active PARoxetine mesylate,menop.sym , 7.5 mg capsule TK 1 C PO QD 6 06/29/20 18 Active CHANTIX STARTING MONTH BOX 0.5 mg (11)- 1 mg (42) tablet 0 07/27/20 18 Active nicotine (NICODERM CQ) 21 mg CHERYL 1 PATCH QD FOR 6 WEEKS 1 06/28/20 18 Active ergocalciferol (VITAMIN D) 50,000 unit capsule TK 1 C PO Q WK 0 07/14/20 18 Active busPIRone (BUSPAR) 5 mg tabletIndications: Generalized Anxiety Disorder TK 1 T PO BID 02/17/20 18 Active fluticasone (FLONASE) 50 mcg/actuation nasal spray Administer 2 sprays into each nostril daily. 9.9 mL 2 10/05/19 19 Active Additional Information Patient not taking.Reported on 05/04/2024 methylPREDNISolone (MEDROL, RAMU,) 4 mg Dosepack follow package directions 21 tablet 10/05/19 19 Active Additional Information Patient not taking.Reported on 10/20/2018 raNITIdine (ZANTAC) 300 mg tablet Take 1 tablet (300 mg total) by mouth nightly. 30 tablet 3 10/20/19 19 Active Additional Information Patient not taking.Reported on 05/04/[address] (NexIUM) 40 mg capsule Take 1 capsule (40 mg total) by mouth daily before breakfast. 30 capsule 3 10/20/19 19 Active Additional Information Patient not taking.Reported on 05/04/2024 ipratropium (ATROVENT) 42 mcg (0.06 %) nasal sprayIndications:C hronic Non-Allergic Rhinitis Administer 2 sprays into each nostril 4 (four) times a day as needed for rhinitis. 15 mL 1 10/20/19 19 Active Additional Information Patient not taking.Reported on 05/04/2024 cetirizine (ZyrTEC) 10 mg tablet Take 1 tablet (10 mg total) by mouth nightly. 30 tablet 2 10/20/19 19 Active Additional Information Patient not taking.Reported on 05/04/2024 ibuprofen (ADVIL,MOTRIN) 600 mg tablet Take 1 tablet (600 mg total) by mouth 4 (four) times a day as needed for pain With food 15 tablet 04/03/20 21 Active prochlorperazine (COMPAZINE) 10 mg tablet Take 1 tablet (10 mg total) by mouth every 8 (eight) hours as needed for nausea or vomiting (Headache) 20 tablet 11/18/19 22 Active Additional Information Patient not taking.Reported on 05/04/2024 ondansetron ODT (ZOFRAN-ODT) 8 mg disintegrating tablet Take 1 tablet (8 mg total) by mouth every 8 (eight) hours as needed for nausea or vomiting 30 tablet 03/04/20 22 Active Additional Information Patient not taking.Reported on 05/04/2024 cyclobenzaprine (FLEXERIL) 5 mg tabletIndications: Muscle Spasm Take 1 tablet (5 mg total) by mouth 2 (two) times a day as needed for muscle spasms 12 tablet 08/26/20 22 Active Additional Information Patient not taking.Reported on 05/04/2024 naproxen (NAPROSYN) 500 mg tablet Take 1 tablet (500 mg total) by mouth 2 (two) times a day with meals 30 tablet 12/11/19 23 Active dicyclomine (BENTYL) 20 mg tablet Take 1 tablet (20 mg total) by mouth 2 (two) times a day 03/05/20 24 Active lisdexamfetamine (VYVANSE) 40 mg capsule Take by mouth daily 04/17/20 24 Active rOPINIRole (REQUIP) 0.25 mg tablet Take 1 tablet (0.25 mg total) by mouth 2 (two) times a day 02/07/20 24 Active valACYclovir (VALTREX) 500 mg tablet 04/27/[address] (ACIPHEX) 20 mg EC tablet Take 1 tablet (20 mg total) by mouth daily Active RABEprazole DR (ACIPHEX) 20 mg EC tablet Take 1 tablet (20 mg total) by mouth daily Active lisdexamfetamine (VYVANSE) 30 mg capsule Take 1 capsule (30 mg total) by mouth display mechanic before breakfast 12/02/19 23 Active Linzess 145 mcg capsule Take 1 capsule (145 mcg total) by mouth daily 05/08/20 24 Active Active Problems Problem Noted Date Diagnosed Date Closed fracture of right elbow 10/03/2020 Right shoulder strain, initial encounter 021 Fall, accidental, initial encounter 10/03/2020 Non-seasonal allergic rhinitis 10/23/2018 Assessment & Plan (10/23/2018 11:12 AM SCALEMAKER): Patient has complaints on continued congestion, that she states occurs year long. She is unaware of specific triggers. She does not take any OTC allergy relief medications. Patient also admits to not using the saline irrigation as previously recommended. Recommend patient use flonase, zyrtec, and saline irrigation daily. RAST testing will be ordered for further evaluation. Vasomotor rhinitis 10/23/2018 Assessment & Plan (10/23/2018 11:17 AM SCALEMAKER): Patient complains of excessive rhinorrhea with eating. Recommend Atrovent nasal spray TID PRN for relief of her symptoms. Acute bacterial sinusitis 10/10/2018 Assessment & Plan (10/10/2018 10:23 AM SCALEMAKER): History and exam consistent with acute bacterial sinusitis. Recommend patient complete previously prescribed oral antibiotics. Will add nasal spray, saline irrigation, mucinex and medrol dose pack. Educated patient on proper nasal spray administration as well as how to perform saline irrigation. I suspect patients symptoms will resolve with medical management. If symptoms persist or re occur further sinus imaging will be discussed. Patient to follow up in 2 weeks if no improvement. Otitis media of both ears 10/10/2018 Assessment & Plan (10/23/2018 11:12 AM SCALEMAKER): Resolved. Assessment & Plan (10/10/2018 10:25 AM SCALEMAKER): Bilateral otitis media showing improvement since starting antibiotics. I suspect patient's symptoms will resolve with medical management. If symptoms persist and patient continues to experience decreased hearing, and tinnitus a complete audiogram is recommended for further evaluation. Patient to follow up in 2 weeks. Skin lesion 02/22/2018 Increased frequency of urination 08/23/2014 Overview (01/06/2017): Frequency of urination Gastroesophageal reflux disease 02/16/2014 Overview (01/07/2017): GERD (gastroesophageal reflux disease) Assessment & Plan (10/23/2018 11:16 AM SCALEMAKER): Patient has a history of reflux, she previously took 40 mg Nexium daily, but has since discontinued this. Patient states her symptoms have recently worsened. Recommend patient start on zantac 300mg at night and nexium 40 mg in the am; she should follow up in 3 months; if symptoms improve nexium will be discontinued and zantac changed to BID Patient was provided with educational material regarding reflux precautions. Patient was instructed to refrain from eating a meal approximately 3 hours prior to bedtime. Patient was instructed to elevate the head of the bed by approximately 8 inches. Patient was to refrain from consuming spicy greasy fatty foods, dairy products, and excessive caffeine use. Patient was also advised to increase water consumption. Patient was also instructed on weight reduction and exercise regimen. Patient was also instructed on the importance of compliance with medications. Follow up in 3 months Hypoglycemia 02/16/2014 Overview (01/07/2017): Hypoglycemia Cobalamin deficiency 02/16/2014 Overview (01/07/2017): B12 deficiency Anxiety 02/16/2014 Overview (01/07/2017): Anxiety Immunizations Immunization Administration Dates Next Due [employer] SARS-CoV-2 Monovalent Vaccination (12+ Yrs) PURPLE 09/29/2021 Social History Tobacco Use Types Packs/Day Years Used Date Smoking Tobacco: Former Smokeless Tobacco: Never AUDIT-C Answer Date Recorded Q1: How often do you have a drink containing alcohol? Never 07/24/2024 Q2: How many drinks containi ng alcohol do you have on a typical day when you are drinking? Patient does not drink Q3: How often do you have si x or more drinks on one occasion? Never 07/24/2024 Personal Safety Answer Date Recorded Have you ever been in or are you currently in a harmful physical or emotional relationship or is someone making you feel afraid or unsafe? Denies 08/01/2024 Comments No Sex and Gender Information Value Date Recorded Sex Assigned at Not on file Legal Sex Female 8:02 PM SCALEMAKER Gender Identity Not on file Sexual Orientation Not on file Last Filed Vital Signs Vital Sign Reading Time Taken Comments Blood Pressure 129/98 08/01/2024 1:05 PM CDT Pulse 90 08/01/2024 1:05 PM CDT Temperature 36.3 C (97.4 F) 08/01/2024 12:14 PM CDT Respiratory Rate 16 08/01/2024 1:05 PM CDT Oxygen Saturation 97% 08/01/2024 1:05 PM CDT Inhaled Oxygen Concentration - - Weight 71.7 kg (158 lb) 08/01/2024 12:14 PM CDT Height 160 cm (5' 3 ) 08/01/2024 12:14 PM CDT Body Mass Index 27.99 08/01/2024 12:14 PM CDT Plan of Treatment Not on file Procedures Procedure Name Priority Date/Time Associated Diagnosis Comments SCREENING MAMMOGRAM BILATERAL W GERALD Schedule Routine, Read Routine (OP Routine) 11/13/2021 8:03 AM SCALEMAKER Encounter for screening mammogram for malignant neoplasm of breast from Last 3 Months or Most Recently Relevant to Health Maintenance Results * Screening Mammogram Bilateral W Gerald (11/13/2021 8:03 AM SCALEMAKER) Anatomical Region Laterality Modality Breast Bilateral Mammography 11/13/2021 11:4 3 AM SCALEMAKER Impressions 11/13/2021 11:43 AM SCALEMAKER There is no mammographic evidence of malignancy. Routine screening mammography is recommended in 1 year. BI-RADS: 1 - Negative. The patient will be entered into a reminder system with a target due date of 1 year for her next mammogram. Electronically signed by: Juan Coburn M.D. Narrative 11/13/2021 11:43 AM SCALEMAKER EXAMINATION: SCREENING MAMMOGRAM BILATERAL W GERALD ORDERING HEALTHCARE PROVIDER: SELF SCREENING MAMMOGRAM HISTORY: Routine screening mammography. COMPARISON: 11/02/2013 TECHNIQUE: CC and MLO views of the bilateral breasts were obtained with digital technique using breast tomosynthesis with C view. Computer aided detection was utilized. FINDINGS: DENSITY: The tissue of the bilateral breasts is almost entirely fatty. BREASTS: There are no suspicious masses, suspicious calcifications, or other suspicious findings in either breast. There has been no suspicious interval change. us Self Screening Mammogram IMG MAMMO PROCEDURES Fi nal Result from Last 3 Months or Most Recently Relevant to Health Maintenance Insurance [facility] CHOICE PLUS [facility] CHOICE PLUS [facility] CHOICE PLUS Advance Directives For more information, please contact: [phone] * Full Code (Latest Code Status on File) Date Activated Date Inactivated Comments 08/01/2024 12:07 PM 08/01/2024 5:27 PM Care Teams Director Fraud Relationship Specialty Start Date End Date Miscellaneous, Not In File PCP - General 05/07/24
--- OUTSIDE RECORDS SUMMARY | 2025-01-23 07:45 | XMS_ITS | Clinical Summary ---
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 12/02/19 23 Active Linzess 145 mcg capsule Take 1 capsule (145 mcg total) by mouth daily 05/08/20 24 Active Active Problems Problem Noted Date Diagnosed Date Closed fracture of right elbow 10/03/2020 Right shoulder strain, initial encounter 021 Fall, accidental, initial encounter 10/03/2020 Non-seasonal allergic rhinitis 10/23/2018 Assessment & Plan (10/23/2018 11:12 AM PHOTOCOPYING EQUIPMENT REPAIRER): Patient has complaints on continued congestion, that [...] 10/23/2018 Assessment & Plan (10/23/2018 11:17 AM PHOTOCOPYING EQUIPMENT REPAIRER): Patient complains of excessive rhinorrhea with eating. Recommend Atrovent nasal spray TID PRN for relief of her symptoms. Acute bacterial sinusitis 10/10/2018 Assessment & Plan (10/10/2018 10:23 AM PHOTOCOPYING EQUIPMENT REPAIRER): History and exam consistent with acute bacterial [...] 10/10/2018 Assessment & Plan (10/23/2018 11:12 AM PHOTOCOPYING EQUIPMENT REPAIRER): Resolved. Assessment & Plan (10/10/2018 10:25 AM PHOTOCOPYING EQUIPMENT REPAIRER): Bilateral otitis media showing improvement since starting [...] disease) Assessment & Plan (10/23/2018 11:16 AM PHOTOCOPYING EQUIPMENT REPAIRER): Patient has a history of reflux, she [...] Anxiety Immunizations Immunization Administration Dates Next Due [employer] SARS-CoV-2 Monovalent Vaccination (12+ Yrs) PURPLE 09/29/2021 Surgical History Surgery Date Site/Laterality Comments GASTRIC BYPASS Gastric bypass CHOLECYSTECTOMY Cholecystectomy TOTAL ABDOMINAL HYSTERECTOMY 10/03/2000 - 10/02/2001 Hysterectomy, total OOPHORECTOMY 10/03/2000 - 10/02/2001 UPPER GASTROINTESTINAL ENDOSCOPY COLONOSCOPY ESOPHAGOGASTRODUODENOSCOPY 10/03/2023 - 11/02/2023 Medical History Medical History Date Comments Gastric reflux History of stomach ulcers Skin cancer 1986 on belly button Smoking previous, quit 2 020 Empty sella H/O gastric bypass Goiter GERD (gastroesophageal reflux disease) Dysphagia Anxiety Family History Medical History Relation Name Comments Thyroid cancer Daughter Breast cancer Mother's Sister Thyroid cancer Mother's Sister Alcohol abuse Neg Hx Arthritis Neg Hx Diabetes Neg Hx Hypertension Neg Hx Lung disease Neg Hx Ovarian cancer Neg Hx Relation Name Status Comments Daughter Mother's Sister Social History Tobacco Use Types Packs/Day Years [...] on file Legal Sex Female 8:02 PM PHOTOCOPYING EQUIPMENT REPAIRER Gender Identity Not on file Sexual Orientation Not on file Obstetrics History Para Term AB IAB SAB Ectopic Multiple Livin g Live Births 5 4 4 Date Outcome GA Total Labor Labor/2nd/3rd Weight Sex Type Anes PTL Arpita A1 A5 Name Clin Term Term Term Term Last Filed Vital Signs Vital Sign Reading [...] 08/01/2024 12:14 PM CDT Plan of Treatment Health Maintenance Due Date Last Done Comments Colon Cancer Screening-Colonoscopy 1971 Depression Screening 1971 Hepatitis C Screening 1971 DTaP/Tdap/Td Vaccine (1 - Tdap) 1982 Hepatitis B Screening 1989 Regular Well Visit/Exam 18-64 1989 Zoster Vaccine (1 of 2) 2021 Breast Cancer Screening-Mammogram 11/13/2022 11/13/2021, 11/02/2013, 11/06/2011 Covid-19 Vaccine (2 - 2023-2 5 season) 2024 09/29/2021 Influenza Vaccine (#1) 2024 07/03/2016 Pneumococcal vaccine <65 Aged Out No longer eligible based on patient's age to complete this topic Procedures Procedure Name Priority Date/Time Associated Diagnosis Comments SCREENING MAMMOGRAM BILATERAL W GERALD Schedule Routine, Read Routine (OP Routine) 11/13/2021 8:03 AM PHOTOCOPYING EQUIPMENT REPAIRER Encounter for screening mammogram for malignant neoplasm of breast from Last 3 Months or Most Recently Relevant to Health Maintenance Results * Screening Mammogram Bilateral W Gerald (11/13/2021 8:03 AM PHOTOCOPYING EQUIPMENT REPAIRER) Anatomical Region Laterality Modality Breast Bilateral Mammography 11/13/2021 11:4 3 AM PHOTOCOPYING EQUIPMENT REPAIRER Impressions 11/13/2021 11:43 AM PHOTOCOPYING EQUIPMENT REPAIRER There is no mammographic evidence of malignancy. Routine screening mammography is recommended in 1 year. BI-RADS: 1 - Negative. The patient will be entered into a reminder system with a target due date of 1 year for her next mammogram. Electronically signed by: Juan Coburn M.D. Narrative 11/13/2021 11:43 AM PHOTOCOPYING EQUIPMENT REPAIRER EXAMINATION: SCREENING MAMMOGRAM BILATERAL W GERALD ORDERING [...] Most Recently Relevant to Health Maintenance Insurance [facility] CHOICE [facility] HMO/PPO Address: [place] [address] [facility]/PPO Address: [address] [place] [id number] [facility] CHOICE [employer] [facility] HMO/PPO Address: [address] [address] [place] [address] Advance Directives For more information, please contact: [phone] * Full Code (Latest Code Status on File) Date Activated Date Inactivated Comments 08/01/2024 12:07 PM 08/01/2024 5:27 PM Care Teams Special Projects Manager Relationship Specialty Start Date End Date Miscellaneous, Not In File PCP - General 05/07/24
--- OUTSIDE RECORDS SUMMARY | 2025-01-23 07:45 | XMS_ITS | Clinical Summary ---
Author Organization [facility] Address [address] [place] [address] Phone Care Team Providers Care Legal Associate Name Role Phone Carlos Canales MD Primary Care Provider [phone] Allergies Active Allergy Reactions Criticality Noted Date Comments Dill Oil Hives 06/09/2016 Medications esomeprazole (NEXIUM) 20 MG CAPSULE DELAYED RELEASE Take 20 mg by mouth daily. Active busPIRone (BUSPAR) 5 MG Tablet TK 1 T PO BID 0 02/16/2018 Active Varenicline Tartrate (CHANTIX PO) Take by mouth. Active HYDROcodone-acet aminophen (NORCO) 7.5-325 MG Tablet Take 1 Tab by mouth every 6 hours as needed. Active Active Problems Problem Noted Date Diagnosed Date Skin lesion 02/22/2018 Family History Medical History Relation Name Comments Chronic Obstructive Pulmonary Disease Father Diabetes Father Hypertension Father Diabetes Mother Hypertension Mother Chronic Obstructive Pulmonary Disease Sister Relation Name Status Comments Father Mother Alive Sister Alive Social History Tobacco Use Types Packs/Day Years Used Date Smoking Tobacco: Every Day Cigarettes Smokeless Tobacco: Never Tobacco Cessation:Ready to Q uit: No; Counseling Given: Yes Alcohol Use Standard Drinks/Week Comments Yes 0 (1 standard drink = 0.6 oz pur e alcohol) social Comments No Sex and Gender Information Value Date Recorded Sex Assigned at Not on file Legal Sex Female 10:28 PM CDT Gender Identity Not on file Sexual Orientation Not on file Last Filed Vital Signs Vital Sign Reading Time Taken Comments Blood Pressure 140/78 04/14/2018 2:11 PM CDT Pulse 68 04/14/2018 2:11 PM CDT Temperature 36.7 C (98.1 F) 04/14/2018 2:11 PM CDT Respiratory Rate 17 04/14/2018 2:11 PM CDT Oxygen Saturation 98% 04/14/2018 2:11 PM CDT Inhaled Oxygen Concentration - - Weight 68.5 kg (151 lb) 04/14/2018 2:11 PM CDT Height 160 cm (5' 3 ) 04/14/2018 2:11 PM CDT Body Mass Index 26.75 04/14/2018 2:11 PM CDT Plan of Treatment Health Maintenance Due Date Last Done Comments Hepatitis C Virus (HCV) Screening 1971 TdaP Immunization 1971 Hepatitis B Immunization (1 of 3 - 19+ 3-dose series) 1990 Colonoscopy 2016 Colorectal Cancer Screening 2016 Cologuard 2021 Immunochemical Fecal Occult Blood 2021 Pneumococcal Immunization (5 0+ years) (1 of 1 - PCV) 2021 Zoster Immunization (1 of 2) 2021 Influenza Immunization (#1) 2024 07/03/2016 SARS-COV-2 Immunization (3 - 2023- season) 2024 09/29/2021, 12/08/2020 Respiratory Syncytial Virus (RSV) Immunization (Adult) (1 - 1-dose 75+ series) 2046 Meningococcal Immunization (ACWY) Aged Out No longer eligible b ased on patient's age to complete this topic Rotavirus Immunization Aged Out No lo nger eligible based on patient's age to complete this topic Insurance [employer] Member Subscriber Plan / Payer (Ef fective 2017-Present) Name:Purnima Lauren Relation to Subscriber:Self Name:Purnima Lauren Payer ID:[id number] Group ID:[id number] Type:Not on file Address: [address] [address] Care Teams Legal Associate Relationship Specialty Start Date End Date Carlos Canales MD [address] [facility] [address] [place] [address] PCP - General Family Medicine 01/20/17
[2025-01-23 20:01] LABS: Hematocrit 42.9 % (37.0-47.0); Hemoglobin 12.8 g/dL (12.0-15.0); Mean Corpuscular HGB Conc 29.8 g/dl (32-36); Mean Corpuscular Hemoglobin 27.4 pg (26-34); Mean Corpuscular Volume 91.7 fl (80-100); Mean Platelet Volume 11.7 fl (7.4-10.4); Platelet Count Result 250 k/mm3 (150-375); Red Blood Count 4.68 M/mm3 (4.2-5.4); Red Cell Distribution Width 14.6 % (11.5-14.5); White Blood Count 5.7 K/mm3 (4.5-10.0)
[2025-01-23 20:58] LABS: Alanine Aminotransferase 33 U/L (6-35); Albumin Level 4.5 g/dL (3.5-5.1); Alkaline Phosphatase 94 U/L (38-126); Anion Gap 8 mmol/L (4-12); Aspartate Amino Transferase 55 U/L (14-36); Bilirubin,Total 0.7 mg/dL (0.2-1.3); Blood Urea Nitrogen 13 mg/dL (7-17); Calcium 9.2 mg/dL (8.4-10.2); Carbon Dioxide 27 mmol/L (22-30); Chloride 104 mmol/L (98-107); Cholesterol 190 mg/dL (0-200); Estimated Glomerular Filt Rate > 60; Glucose 96 mg/dL (65-110); HDL Direct 64 mg/dL; Potassium 4.6 mmol/L (3.4-5.0); Sodium 139 mmol/L (137-145); Triglycerides 105 mg/dL (<150)
[2025-01-23 21:06] LABS: Vitamin D 25 Hydroxy 23.3 ng/mL
[2025-01-23 21:09] LABS: LDL Cholesterol Direct 81 mg/dL
[2025-01-23 21:19] LABS: Thyroid Stimulating Hormone Reflex 0.814 uIU/mL (0.465-4.68)
[2025-01-23 21:42] LABS: Hemoglobin A1C 6.1 % (<5.7)
== END 2025-01-23 07:41 | disposition home or self-care (01) ==
LOC: ANHBWCLAB 07:41
PROVIDERS: PCP Nurse Practitioner Adult Health; Visit Provider Nurse Practitioner Adult Health
DX: F41.9 Anxiety disorder, unspecified (principal); E11.9 Type 2 diabetes mellitus without complications; E55.9 Vitamin D deficiency, unspecified; E07.9 Disorder of thyroid, unspecified
CPT/HCPCS: 36415; 80053; 80061; 82306; 82607; 83036; 84443; 85027

== ENCOUNTER 2025-06-17 13:53 | Outpatient (CLI) | payer OTHER, SELFPAY ==
--- OUTSIDE RECORDS SUMMARY | 2025-06-17 16:32 | XMS_ITS | Clinical Summary ---
Author Organization [facility] Address [address] [place] [address] Care Team Providers Care Distribution Field Technician Name Role Phone Arely Hernandez NP Primary Care Provider Allergies Active Allergy Reactions Criticality Noted Date [...] 1 capsule (30 mg total) by mouth editor producer before breakfast 12/02/19 23 Active Linzess 145 mcg capsule Take 1 capsule (145 mcg total) by mouth daily 05/08/[address] (PROTONIX) 40 mg EC tablet Take 1 tablet (40 mg total) by mouth daily 30 tablet 02/01/20 25 Active lidocaine (LIDODERM) 5 % Apply 1 patch topically daily for 12 hours Remove after 12 hours (need 12 hour patch free period). 10 patch 06/12/20 25 025 Active Active Problems Problem Noted Date Diagnosed Date Closed fracture of right elbow 10/03/2020 Right shoulder strain, initial encounter 021 Fall, accidental, initial encounter 10/03/2020 Non-seasonal allergic rhinitis 10/23/2018 Assessment & Plan (10/23/2018 11:12 AM LINEN ROOM ATTENDANT): Patient has complaints on continued congestion, that [...] 10/23/2018 Assessment & Plan (10/23/2018 11:17 AM LINEN ROOM ATTENDANT): Patient complains of excessive rhinorrhea with eating. Recommend Atrovent nasal spray TID PRN for relief of her symptoms. Acute bacterial sinusitis 10/10/2018 Assessment & Plan (10/10/2018 10:23 AM LINEN ROOM ATTENDANT): History and exam consistent with acute bacterial [...] 10/10/2018 Assessment & Plan (10/23/2018 11:12 AM LINEN ROOM ATTENDANT): Resolved. Assessment & Plan (10/10/2018 10:25 AM LINEN ROOM ATTENDANT): Bilateral otitis media showing improvement since starting [...] disease) Assessment & Plan (10/23/2018 11:16 AM LINEN ROOM ATTENDANT): Patient has a history of reflux, she [...] B12 deficiency Anxiety 02/16/2014 Overview (01/07/2017): Anxiety Encounters Date Type Department Care Team Description 06/12/2025 2:22 PM CDT - 06/12/2025 5:19 PM CDT Emergency [facility] Emergency Department [address] [place] [address] Van Pedersen MD Li, Mani Ying MD Chest pain, unspecified type (Primary Dx) Discharge Disposition: Discharge to home or self care 05/13/2025 12:23 PM CDT - 05/13/2025 11:59 PM CDT Hospital Encounter [facility] [address] [place] [address] Pain Discharge Disposition: Discharge to home or self care from Last 3 Months Immunizations Immunization Administration Dates Next Due Pfizer SARS-CoV-2 Monovalent Vaccination (12+ Yrs) PURPLE 09/29/2021 [...] making you feel afraid or unsafe? Denies 06/12/2025 Comments No Sex and Gender Information Value Date Recorded Sex Assigned at Not on file Legal Sex Female 8:02 PM LINEN ROOM ATTENDANT Gender Identity Not on file Sexual Orientation Not on file Obstetrics History Para Term AB IAB SAB Ectopic Multiple Livin g Live Births 5 4 4 Date Outcome GA Total Labor Labor/2nd/3rd Weight Sex Type Anes PTL Arpita A1 A5 Name Clin Term Term Term Term Last Filed Vital Signs Vital Sign Reading Time Taken Comments Blood Pressure 171/91 06/12/2025 2:15 PM CDT Pulse 71 06/12/2025 2:15 PM CDT Temperature 36.9 C (98.4 F) 06/12/2025 2:15 PM CDT Respiratory Rate 15 06/12/2025 2:15 PM CDT Oxygen Saturation 100% 06/12/2025 2:15 PM CDT Inhaled Oxygen Concentration - - Weight 70.3 kg (155 lb) 06/12/2025 12:10 PM CDT Height 160 cm (5' 2.99) 06/12/2025 12:10 PM CDT Body Mass Index 27.46 06/12/2025 12:10 PM CDT Plan of Treatment Health Maintenance Due Date Last Done Comments Colon Cancer Screening-Colonoscopy 1971 Depression Screening 1971 Hepatitis C Screening 1971 DTaP/Tdap/Td Vaccine (1 - Tdap) 1982 Hepatitis B Screening 1989 Regular Well Visit/Exam 18-64 1989 Zoster Vaccine (2 of 3) 07/05/2022 05/10/20, 02/04/2022 Breast Cancer Screening-Mammogram 11/13/2022 11/13/2021, 11/02/2013, 11/06/2011 Covid-19 Vaccine (3 - 2024-2 6 season) 2025 09/29/2021, 12/08/2020 Influenza Vaccine (#1) 2025 , 07/03/2016 Pneumococcal vaccine <65 Aged Out No longer eligible based on patient's age to complete this topic Procedures Procedure Name Priority Date/Time Associated Diagnosis Comments TROPONIN I HIGH-SENSITIVITY 2-HOUR Timed 06/12/2025 3:47 PM CDT EGFR STAT 06/12/2025 2:36 PM CDT DIFFERENTIAL AUTO STAT 06/12/2025 2:3 6 PM CDT TROPONIN I HIGH-SENSITIVITY SERIES (BASELINE, 2HR, 4HR, 6HR) STAT 06/12/2025 2:36 PM CDT COMPREHENSIVE METABOLIC PANEL STAT 06/12/2025 2:36 PM CDT CBC WITH AUTO DIFFERENTIAL STAT 06/12/2025 2:36 PM CDT ECG 12-LEAD STAT 06/12/2025 2:29 PM CDT XR CHEST PA LATERAL 2 VIEWS ED 06/12/2025 1:11 PM CDT XR SPINE LUMBAR COMPLETE 4 OR MORE VIEWS Schedule Routine, Read Routine (OP Routine) 05/13/2025 12:44 PM CDT Pain SCREENING MAMMOGRAM BILATERAL W REGINE Schedule Routine, Read Routine (OP Routine) 11/13/2021 8:03 AM LINEN ROOM ATTENDANT Encounter for screening mammogram for malignant neoplasm of breast from Last 3 Months or Most Recently Relevant to Health Maintenance Results * Troponin I high-sensitivity 2-hour (06/12/2025 3:47 PM CDT) Trop I hs <4 <=17 ng/L Comment: Interpretive Data For further hscTnI resources including the diagnostic algorithm and an aid in interpretation, copy and paste this link: https://bjhlab.testcatalog.org/show/hsTrop-1 Current Interpretive Data last revised 2020. Trop I hs delta See Comment ng/L [facility] Comment:Inappropriate collec tion time to report a delta. Trop I hs pct delta See Comment % [facility] Comment:Inappropriate collec tion time to report a delta. Trop I hs interp See Comment [facility] Comment:Inappropriate collec tion time to report a delta. Blood 06/12/2025 3:47 PM CDT 06/12/2025 4:12 PM CDT us Van Pedersen MD LAB BLOOD ORDERABLES Final Re sult [facility] Department [place] [address] * Troponin I high-sensitivity series (baseline, 2hr, 4hr, 6hr) (06/12/2025 2:36 PM CDT) Trop I hs <4 <=17 ng/L Comment: Interpretive Data For further hscTnI resources including the diagnostic algorithm and an aid in interpretation, copy and paste this link: https://bjhlab.testcatalog.org/show/hsTrop-1 Current Interpretive Data last revised 2020. Blood 06/12/2025 2:36 PM CDT 06/12/2025 3:04 PM CDT Van Pedersen MD LAB BLOOD ORDERABLES Final Re sult Performing Organization Address City/[facility]/ZIP Co de Phone Number [facility] [place] [address] * eGFR (06/12/2025 2:36 PM CDT) eGFR >90 >=60 mL/min/1. 73 m2 Comment: Interpretive Data Reference Interval Normal >/= 90 mL/min/1.73m2 Mildly decreased* 60 - 89 mL/min/1.73m2 Mildly to moderately decreased 45 - 59 mL/min/1.73m2 Moderately to severely decreased 30 - 44 mL/min/1.73m2 Severely decreased 15 - 29 mL/min/1.73m2 Kidney Failure < 15 mL/min/1.73m2 *Relative to young adult level Estimated glomerular filtration rate is determined by the 2020 CKD-EPI equation recommended by the National Kidney Foundation (A Unifying Approach to GFR Estimation: Recommendations of the NKF-ASK Task Force on Reassessing the Inclusion of Race in Diagnosing Kidney Disease, JASN 202). The CKD-EPI equation should not be used for patients with unstable renal function and has not been validated in children and those over 70. Current interpretive data was last reviewed 2021. Blood 06/12/2025 2:36 PM CDT 06/12/2025 3:03 PM CDT Van Pedersen MD LAB BLOOD ORDERABLES Final Re sult [facility] [place] [address] * Differential, auto (06/12/2025 2:36 PM CDT) Pathologist [facility] Neutrophil abs 3.15 1.50 - 6.50 K/cumm Imm gran abs 0.02 0.00 - 0.10 K/cumm [facility] Lymphocyte abs 1.95 0.80 - 3.30 K/cumm [facility] Monocyte abs 0.45 0.20 - 0.80 K/cumm [facility] Eosinophil abs 0.14 0.00 - 0.50 K/cumm [facility] Basophil abs 0.06 0.00 - 0.10 K/cumm [facility] Neutrophil pct 54.7 % [facility] Comment: Interpretive Data Percent cell count reference ranges are not reported, since discordance with absolute values may lead to misinterpretation of CBC data. Current Interpretive Data was last revised on 2018. Imm gran pct 0.3 % [facility] Comment: Interpretive Data Percent cell count reference ranges are not reported, since discordance with absolute values may lead to misinterpretation of CBC data. Current Interpretive Data was last revised on 2018. Lymphocyte pct 33.8 % [facility] Comment: Interpretive Data Percent cell count reference ranges are not reported, since discordance with absolute values may lead to misinterpretation of CBC data. Current Interpretive Data was last revised on 2018. Monocyte pct 7.8 % [facility] Comment: Interpretive Data Percent cell count reference ranges are not reported, since discordance with absolute values may lead to misinterpretation of CBC data. Current Interpretive Data was last revised on 2018. Eosinophil pct 2.4 % [facility] Comment: Interpretive Data Percent cell count reference ranges are not reported, since discordance with absolute values may lead to misinterpretation of CBC data. Current Interpretive Data was last revised on 2018. Basophil pct 1.0 % [facility] Comment: Interpretive Data Percent cell count reference ranges are not reported, since discordance with absolute values may lead to misinterpretation of CBC data. Current Interpretive Data was last revised on 2018. Blood 06/12/2025 2:36 PM CDT 06/12/2025 3:04 PM CDT us Van Pedersen MD LAB BLOOD ORDERABLES Final Re sult Performing Organization Address [facility] Co de Phone Number [facility] [place] [employer] [place] [address] * (ABNORMAL) CBC with auto differential (06/12/2025 2:36 PM CDT) Pathologist [facility] WBC 5.77 3.80 - 9.90 K/cumm Hgb 12.7 11.9 - 15.5 g/dL [facility] Hct 39.9 35.6 - 45.5 % [facility] Plt 64(L) 150 - 400 K/cumm [facility] MPV 12.7(H) 9.1 - 12.3 fL [facility] RBC 4.68 3.90 - 5.20 M/cumm [facility] MCV 85.3 81.3 - 96.4 fL [facility] MCH 27.1 27.1 - 33.3 pg [facility] MCHC 31.8(L) 32.3 - 35.7 g/dL [facility] RDW CV 14.2 11.1 - 14.9 % [facility] RDW SD 43.6 35.7 - 48.1 fL [facility] NRBC abs 0.00 0.00 - 0.01 K/cumm [facility] Blood Venous blood specimen / Unknown 06/12/2025 2:36 PM CDT 06/12/2025 3:04 PM CDT Van Pedersen MD LAB BLOOD ORDERABLES Final Re sult Performing Organization Address City/[facility]/ZIP Co de Phone Number [facility] Department [place] [employer] [place] [address] * Comprehensive metabolic panel (06/12/2025 2:36 PM CDT) Pathologist [facility] Sodium 140 135 - 145 mmol/L Potassium, pl See Comment 3.3 - 4.9 mmol/L [facility] Comment:Credited; Hemolyzed Specimen Chloride 105 97 - 110 mmol/L [facility] CO2 25 22 - 32 mmol/L [facility] Anion gap 10 2 - 15 mmol/L [facility] BUN 6 6 - 25 mg/dL [facility] Creatinine 0.65 0.60 - 1.10 mg/dL [facility] Glucose 104 70 - 199 mg/dL [facility] Comment: Interpretive Data Fasting glucose >/= 126 mg/dl is diagnostic for diabetes. Fasting is defined as no caloric intake for at least 8 hours. Fasting glucose between 100 mg/dl to 125 mg/dl is diagnostic of prediabetes. In a patient with classic symptoms of hyperglycemia or hyperglycemic crisis, a random glucose >/= 200 mg/dl is diagnostic for diabetes. In the absence of unequivocal hyperglycemia, results should be confirmed by repeat testing. The classification and Diagnosis of Diabetes Diabetes Care 2021; 46: S19-S40. Current interpretive data was last revised 2022. Calcium 9.4 8.5 - 10.3 mg/dL [facility] Bilirubin, total 0.5 0.1 - 1.2 mg/dL [facility] Protein, pl 7.7 6.5 - 8.5 g/dL [facility] Albumin 4.7 3.5 - 5.0 g/dL [facility] Alk phos 99 40 - 130 Units/L [facility] Comment:Hemolyzed; result ma y be falsely decreased ALT See Comment 7 - 45 Units/L [facility] Comment:Credited; Hemolyzed Specimen AST See Comment 10 - 45 Units/L [facility] Comment:Credited; Hemolyzed Specimen Blood 06/12/2025 2:36 PM CDT 06/12/2025 3:03 PM CDT us Van Pedersen MD LAB BLOOD ORDERABLES Final Re sult [facility] [place] [address] * ECG 12-LEAD (06/12/2025 2:29 PM CDT) Narrative [facility] - 06/12/2025 2:29 PM CDT Van Pedersen MD 06/12/2025 2:29 PM ECG 12 lead Date/Time: 06/12/2025 2:29 PM Performed by: Van Pedersen MD Authorized by: Van Pedersen MD Rate: ECG rate assessment comment: 78, normal sinus rhythm, normal axis, normal intervals, nonspecific ST changes. Van Pedersen MD ECG ORDERABLES Final Result [facility] * XR Chest PA Lateral 2 Views (If patient hemodynamically stable and ambulatory) (06/12/2025 1:11 PM CDT) Anatomical Region Laterality Modality Body, Chest N/A Computed Radiogr aphy 06/12/2025 1:32 PM CDT Impressions 06/12/2025 1:32 PM CDT No acute finding in the chest. Electronically signed by: Anai Dsouza M.D. Narrative 06/12/2025 1:32 PM CDT EXAMINATION: XR CHEST PA LATERAL 2 VIEWS HISTORY: chest pain COMPARISON: CXR 01/31/2025; CT chest 01/31/2025 FINDINGS: Frontal and lateral views of the chest were obtained. The lungs are clear without focal opacity or pulmonary edema. No pleural effusion or pneumothorax is seen. The cardiac silhouette is normal in size. The aorta is tortuous No acute skeletal finding is seen. Procedure Note Anai Dsouza MD - 06/12/2025 EXAMINATION: XR CHEST PA LATERAL 2 VIEWS HISTORY: chest pain COMPARISON: CXR 01/31/2025; CT chest 01/31/2025 FINDINGS: Frontal and lateral views of the chest were obtained. The lungs are clear without focal opacity or pulmonary edema. No pleural effusion or pneumothorax is seen. The cardiac silhouette is normal in size. The aorta is tortuous No acute skeletal finding is seen. IMPRESSION: No acute finding in the chest. Electronically signed by: Anai Dsouza M.D. Van Pedersen MD IMG XR PROCEDURES Final Resul t * XR Spine Lumbar 4 or More Views (05/13/2025 12:44 PM CDT) Anatomical Region Laterality Modality Spine N/A Computed Radiogr aphy 05/19/2025 12:5 2 PM CDT Narrative 05/19/2025 12:54 PM CDT EXAM DESCRIPTION: 1. XR SPINE LUMBAR 4 OR MORE VIEWS REASON FOR STUDY: LOW BACK PAIN,UNSPECIFIED Lower back pain since Tuesday No recent injuries No surgeries Hx of fall injury years ago FINDINGS: Four views submitted with comparison 01/31/2025. No acute fracture. Mild L1-L2, moderate L2-L3 and mild L3-L5 degenerative disc disease. Inferior lumbar facet osteoarthritis. Minimal levocurvature of the upper lumbar spine. Arterial atherosclerosis is present. IMPRESSION: 1. Hfes-hn-wyyibxpe L1-L5 degenerative disc disease, greatest at L2-L3. THIS IS AN ELECTRONICALLY VERIFIED FINAL REPORT 05/19/2025 12:54 PM - Electronically signed by Charan Lopes M.D. MF: [email or web address] Report ID: [id number] Reading Location: [id number] Procedure Note Charan Lopes MD - 05/19/2025 EXAM DESCRIPTION: 1. XR SPINE LUMBAR 4 OR MORE VIEWS REASON FOR STUDY: LOW BACK PAIN,UNSPECIFIED Lower back pain since Tuesday No recent injuries No surgeries Hx offall injury years ago FINDINGS: Four views submitted with comparison 01/31/2025. No acute fracture. Mild L1-L2, moderate L2-L3 and mild L3-L5 degenerative disc disease. Inferior lumbar facet osteoarthritis. Minimallevocurvature of the upper lumbar spine. Arterial atherosclerosis is present. IMPRESSION: 1. Pemf-gc-lxapnyem L1-L5 degenerative disc disease, greatest atL2-L3. THIS IS AN ELECTRONICALLY VERIFIED FINAL REPORT 05/19/2025 12:54 PM - Electronically signed by Charan Lopes M.D. MF: [email or web address] Report ID: [id number] Reading Location: [id number] Areyl Hernandez NP IMG XR PROCEDURES Final Result * Screening Mammogram Bilateral W Regine (11/13/2021 8:03 AM LINEN ROOM ATTENDANT) Anatomical Region Laterality Modality Breast Bilateral Mammography 11/13/2021 11:4 3 AM LINEN ROOM ATTENDANT Impressions 11/13/2021 11:43 AM LINEN ROOM ATTENDANT There is no mammographic evidence of malignancy. Routine screening mammography is recommended in 1 year. BI-RADS: 1 - Negative. The patient will be entered into a reminder system with a target due date of 1 year for her next mammogram. Electronically signed by: Juan Coburn M.D. Narrative 11/13/2021 11:43 AM LINEN ROOM ATTENDANT EXAMINATION: SCREENING MAMMOGRAM BILATERAL W REGINE ORDERING HEALTHCARE PROVIDER: SELF SCREENING MAMMOGRAM HISTORY: [...] Most Recently Relevant to Health Maintenance Insurance , [address] CHOICE PLUS [facility] CHOICE PLUS [facility] CHOICE PLUS Advance Directives For more information, please contact: [phone] * Full Code (Latest Code Status on File) Date Activated Date Inactivated Comments 08/01/2024 12:07 PM 08/01/2024 5:27 PM Care Teams Distribution Field Technician Relationship Specialty Start Date End Date Arely Hernandez NP [address] [place] [id number] PCP - General Nurse Practitioner 01/31/25
--- OUTSIDE RECORDS SUMMARY | 2025-06-17 16:32 | XMS_ITS | Clinical Summary ---
Author Organization Debra Morales [facility] Address [address] [place] [address] Phone Care Team Providers Care Information And Data Architect Analyst Name Role Phone Belkis Duggan MD Primary [...] on file Legal Sex Female 6:07 AM DISTRIBUTION OPERATIONS MANAGER Gender Identity Not on file Sexual Orientation [...] 8:24 AM CDT Height 160 cm (5' 3) 05/30/2020 8:24 AM CDT Body Mass Index [...] (1 of 2) 2021 INFLUENZA VACCINE (#1) 2025 Procedures Procedure Name Priority Date/Time Associated Diagnosis [...] Maintenance Insurance BLUE ACCESS CHOICE Care Teams Information And Data Architect Analyst Relationship Specialty Start Date End Date Belkis Duggan MD PCP - General Family Practice 03/14/20
--- OUTSIDE RECORDS SUMMARY | 2025-06-17 16:32 | XMS_ITS | Clinical Summary ---
Author Organization [facility] [employer] Address [address] [place] [address] Care Team Providers Care Final Block Press Operator Name Role Phone Carlos Canales MD Unavailable [phone] Sagar Joseph MD Primary Care Provider [phone] Source Comments [facility] [employer],non-owned Affiliates and Associated Physician Practices is amultiple site organization consisting of ambulatory clinics and hospital sitesin [place], [place], [place] and [place]. This disclosure is being madepursuant to the Care Everywhere program and may not contain all information available regarding this patient. Last updated 18.[facility] [employer] Allergies No known active allergies Medications * [...] Comments Blood Pressure 130/80 11/25/2021 8:02 AM NIGHT CLERK AUDITOR Pulse 76 11/25/2021 8:02 AM NIGHT CLERK AUDITOR Temperature 36.7 C (98.1 F) 12/29/2017 9:07 AM CDT Respiratory Rate - - Oxygen Saturation 98% 11/25/2021 8:02 AM NIGHT CLERK AUDITOR Inhaled Oxygen Concentration - - Weight 83 kg (183 lb) 06/03/2022 9:48 AM CDT Height 160 cm (5' 3) 06/03/2022 9:48 AM CDT Body Mass Index [...] COLON CA SCREENING 1971 LIPID TESTING 1971 HIV SCREENING 1986 HEPATITIS C SCREENING 06/20/1989 DTAP/TDAP/TD VACCINES (1 - Tdap) 1990 HEPATITIS B VACCINE (1 of 3 - 19+ 3-dose series) 1990 PAP SMEAR 1992 SCREENING FOR DIABETES 12/29/2017 07/28/2012 PNEUMOCOCCAL VACCINE 50+ (1 of 1 - PCV) 2021 ZOSTER VACCINE (1 of 2) 2021 MAMMOGRAM 11/13/2023 11/13/2021 DEPRESSION SCREENING 10/03/2024 COVID-19 VACCINE (2 - 2024-2 6 season) 2025 09/29/2021 INFLUENZA VACCINE (#1) 2025 07/24/2012 HIB VACCINE Aged Out No longer eligi [...] CDT) BUN 7 7 - 26 mg/dL [facility] Creatinine 0.6 0.6 - 1.2 mg/dL [facility] eGFR by MDRD > 60 ML/MIN [facility] Comment: Chronic kidney disease: <60 ml/min Kidney failure: <15 ml/min Based on BSA of 1.73m2. Sodium 142 136 - 145 mmol/L [facility] Potassium 4.1 3.5 - 4.5 mmol/L [facility] Chloride 106 98 - 107 mmol/L [facility] CO2 25 22 - 29 mmol/L [facility] Glucose 103 70 - 115 mg/dL [facility] Calcium 9.3 8.4 - 10.2 mg/dL [facility] Protein Total 7.2 6.0 - 8.3 g/dL [facility] Albumin 4.0 3.4 - 5.0 g/dL [facility] Bilirubin Total 0.9 0.2 - 1.2 mg/dL [facility] Alkaline Phosphatase 107 40 - 150 Units/L [facility] ALT 12 0 - 55 Units/L [facility] AST 15 5 - 34 Units/L [facility] Anion Gap 15 8 - 18 [facility] BUN/Creatinine Ratio 11 7 - 23 [facility] Osmolality Calculation 276 270 - 300 mOsm/kg [facility] Albumin/Globulin Ratio 1.3 1.1 - 2.3 [facility] Serum 07/28/2012 4:03 PM CDT 07/28/2012 4:34 PM CDT Narrative [facility] - 07/28/2012 4:34 PM CDT Preferred Lab:->[facility] Juan Luis Grimes MD LAB - CHEMISTRY ORDERABLES F inal Result [facility] [address] [phone] from Last 3 Months or Most Recently Relevant to Health Maintenance [facility] Care Teams Final Block Press Operator Relationship Specialty Start Date End Date Sagar Joseph MD [address] [place] [place] [phone] PCP - General Family Medicine 11/25/21 Carlos Canales MD [address] [place] [phone] Family Medicine 03/13/18
--- OUTSIDE RECORDS SUMMARY | 2025-06-17 16:32 | XMS_ITS | Clinical Summary ---
Author Organization [facility] Address [address] [place] [address] Phone Care Team Providers Care Speech Language Pathologist Name Role Phone Carlos Canales MD Primary Care Provider [phone] Allergies Active Allergy Reactions Criticality Noted Date [...] 2:11 PM CDT Height 160 cm (5' 3) 04/14/2018 2:11 PM CDT Body Mass Index 26.75 04/14/2018 2:11 PM CDT Plan of Treatment Health Maintenance Due Date Last Done Comments Hepatitis C Virus (HCV) Screening 1971 TdaP Immunization 1971 Hepatitis B Immunization (1 of 3 - 19+ 3-dose series) 1990 Cologuard 2016 Colonoscopy 2016 Colorectal Cancer Screening 2016 Immunochemical Fecal Occult Blood 2016 Pneumococcal Immunization (5 0+ years) (1 of 1 - PCV) 2021 Zoster Immunization (1 of 2) 2021 Influenza Immunization (#1) 2025 07/03/2016 SARS-COV-2 Immunization (3 - 2024- season) 2025 09/29/2021, 12/08/2020 Respiratory Syncytial Virus (RSV) Immunization (Adult) (1 - 1-dose 75+ series) 2046 Human Papillomavirus (HPV) Immunization Aged Out No longer eligible b ased on patient's age to complete this topic Meningococcal Immunization (ACWY) Aged Out No longer eligible b ased on patient's age to complete this topic Rotavirus Immunization Aged Out No lo nger eligible based on patient's age to complete this topic Insurance [employer] [facility] Care Teams Speech Language Pathologist Relationship Specialty Start Date End Date Carlos Canales MD [address] [place] [address] [address] [place] [address] PCP - General Family Medicine 01/20/17
[2025-06-17 18:45] LABS: Alanine Aminotransferase 24 U/L (6-35); Albumin Level 4.7 g/dL (3.5-5.1); Alkaline Phosphatase 88 U/L (38-126); Anion Gap 10 mmol/L (4-12); Aspartate Amino Transferase 51 U/L (14-36); Bilirubin,Total 0.5 mg/dL (0.2-1.3); Blood Urea Nitrogen 9 mg/dL (7-17); Calcium 9.3 mg/dL (8.4-10.2); Carbon Dioxide 24 mmol/L (22-30); Chloride 104 mmol/L (98-107); Estimated Glomerular Filt Rate > 60; Glucose 148 mg/dL (65-110); Potassium 4.2 mmol/L (3.4-5.0); Sodium 138 mmol/L (137-145); Total Protein 7.7 g/dL (6.3-8.2)
[2025-06-17 18:50] LABS: Hematocrit 40.5 % (37.0-47.0); Hemoglobin 12.8 g/dL (12.0-15.0); Mean Corpuscular HGB Conc 31.6 g/dl (32-36); Mean Corpuscular Hemoglobin 27.4 pg (26-34); Mean Corpuscular Volume 86.5 fl (80-100); Platelet Count Result 264 k/mm3 (150-375); Red Blood Count 4.68 M/mm3 (4.2-5.4); White Blood Count 6.3 K/mm3 (4.5-10.0)
== END 2025-06-17 13:54 | disposition home or self-care (01) ==
LOC: ANHBWCLAB 13:53
PROVIDERS: PCP Nurse Practitioner Adult Health; Visit Provider Nurse Practitioner Adult Health
DX: R74.8 Abnormal levels of other serum enzymes (principal); D69.6 Thrombocytopenia, unspecified
CPT/HCPCS: 36415; 80053; 85027

== ENCOUNTER 2025-07-18 12:49 | Outpatient (CLI) | payer OTHER, SELFPAY ==
--- NOTE | ~2025-07-18 | XR_ITS ---
EXAMINATION: XR sacrum coccyx min 2V, 07/18/2025 13:25 CDT HISTORY: M46.1 - Sacroiliitis, not elsewhere classified COMPARISON: No comparisons available. Findings: No acute fracture or malalignment. Mild sclerosis of the sacroiliac joints, no erosions or bridging osteophyte formation Soft tissues unremarkable. Impression: No acute fracture or malalignment. Reviewed, dictated and finalized at location P. Impression: No acute fracture or malalignment.
--- NOTE | ~2025-07-18 | MR_ITS ---
EXAMINATION: MR lumbar spine wo con DATE: 07/18/2025 13:23 INDICATION: Low back pain, unspecified. TECHNIQUE: Magnetic resonance imaging (MRI) of the lumbar spine was performed without intravenous contrast. Sequences included sagittal T2-weighted FSE, sagittal T2-weighted FS FSE, sagittal T1-weighted FSE, and axial T2-weighted FSE. COMPARISON: None FINDINGS: There is 4 degrees levocurvature of thoracolumbar spine. There is mild chronic anterior wedging of T11 vertebral body. There is mildly decreased disc height at L2-L3 and L4-L5. The distal spinal cord signal intensity is normal. The conus medullaris is at T12-L1. The following disc levels are specifically discussed: L1-L2: The disc is bulging. There is mild bilateral facet joint osteoarthritis. There is no neural foraminal stenosis. There is mild central canal stenosis. L2-L3: The disc is bulging and has an annular fissure. There is mild bilateral facet joint osteoarthritis. There is mild bilateral neural foraminal stenosis. There is mild central canal stenosis. L3-L4: The disc is bulging and has an annular fissure. There is mild bilateral facet joint osteoarthritis. There is mild bilateral neural foraminal stenosis. There is mild central canal stenosis. L4-L5: The disc is bulging and has an annular fissure. There is moderate bilateral facet joint osteoarthritis. There is mild bilateral neural foraminal stenosis. There is mild central canal stenosis. L5-S1: There is a central protrusion. There is severe bilateral facet joint osteoarthritis. There is mild bilateral neural foraminal stenosis. There is mild central canal stenosis. IMPRESSION: 1. Mild lumbar spondylosis. Reviewed, dictated and finalized at location E. IMPRESSION: 1. Mild lumbar spondylosis.
== END 2025-07-18 12:50 | disposition home or self-care (01) ==
LOC: MICIMG 12:50
PROVIDERS: PCP Nurse Practitioner Adult Health; Visit Provider Nurse Practitioner Adult Health
DX: M47.816 Spondylosis without myelopathy or radiculopathy, lumbar region (principal); M46.1 Sacroiliitis, not elsewhere classified
CPT/HCPCS: 72148; 72220